=== PATIENT | female | born 1970 | race Caucasian/White ===

== ENCOUNTER → 2017-02-21 | Outpatient (CLI) | payer BC ==
--- NOTE | 2017-02-21 10:19 | CT ---
EXAMINATION TYPE: CT chest wo con DATE OF EXAM: 02/21/2017 COMPARISON: Chest x-ray January 19, 2017. HISTORY: Abnormal breathing test results per patient. History of asthma and lupus. Interstitial lung disease. CT DLP: 373.7 mGycm. Automated Exposure Control for Dose Reduction was Utilized. TECHNIQUE: CT scan of the thorax is performed without IV contrast. High resolution protocol with 10 mm sequences obtained in supine and prone technique. FINDINGS: LUNGS: Thickened septa and reticulation is present bilaterally. Thin-walled cystic change is seen piotr aterally most prominent involving upper lobes. Findings may be on basis of chronic emphysematous chow ge. Some additional linear scarring in both lung bases near diaphragm is identified. There is 15 x 7 mm scarlike opacity laterally right upper lung on axial image 5 series 8. This likely correlates with image 7 series 4. Mild peribronchial wall thickening is present. No large pleural effusion or pneumo thorax is seen. Lower lungs relatively spared. No suspicious consolidation or groundglass opacity oth erwise identified. Some upper lung scattered tiny nodular opacities noted. MEDIASTINUM: Lack of IV contrast is noted to limit evaluation for mediastinal and especially hilar ad enopathy. There are no definitive greater than 1 cm hilar or mediastinal lymph nodes. No cardiomega ly or pericardial effusion is seen. Coronary artery calcification is present. OTHER: Osseous structures are somewhat demineralized. IMPRESSION: Parenchymal findings favor moderate emphysematous change. Scarlike nodule right upper lob e noted in which underlying mass or neoplasm cannot be excluded. Advise PET/CT correlation.
== END | disposition home or self-care (01) ==
LOC: RADCTMAIN 08:02
PROVIDERS: ATTEND Internal Medicine
DX: J43.8 Other emphysema (principal); R91.1 Solitary pulmonary nodule
CPT/HCPCS: 71250

== ENCOUNTER 2022-12-26 11:36 | Emergency (ER) | payer BC ==
[2022-12-26] MEDS ORDERED: KETOROLAC 15 MG/ML 1 ML VIAL IVP STA ×2 (13:17→15:04)
[2022-12-26] MEDS ORDERED: HYDROmorphone 1 MG/ML 1 ML SYRINGE IVP STA ×2 (13:17→15:04)
--- NOTE | 2022-12-26 13:20 | ED ---
General Adult HPI - General Chief complaint: Back Pain/Injury Stated complaint: back pain Time Seen by Provider: 12/26/22 12:49 Source: patient, RN notes reviewed Mode of arrival: wheelchair Limitations: no limitations - History of Present Illness Initial comments: Patient is a pleasant 52-year-old female presenting to the emergency Department with back pain. Patient has been to her doctor twice, urgent care and [facility]. Patient did have computed tomography scan done at [facility]. Patient has received pain medications including hydrocodone and is currently on baclofen and steroids. Patient is having increased weakness, somewhat more left leg. Difficult to lift legs off the bed. Patient has been using a walker recently which is new for her however difficulty even using that today. No incontinence or retention of bowel or bladder. Patient does have numbness sensation of her sacral region and bilateral inner posterior thighs. Patient does have history of lupus - Related Data Allergies Allergy/AdvReac Type Severity Reaction Status Date / Time Penicillins Allergy Anaphylaxis Verified 12/26/22 12:10 Review of Systems ROS Statement: Those systems with pertinent positive or pertinent negative responses have been documented in the HPI. ROS Other: All systems not noted in ROS Statement are negative. Constitutional: Denies: fever Eyes: Denies: eye pain ENT: Denies: ear pain Respiratory: Denies: cough Cardiovascular: Denies: chest pain Endocrine: Denies: fatigue Gastrointestinal: Denies: abdominal pain Genitourinary: Denies: dysuria Musculoskeletal: Reports: as per HPI, back pain Skin: Denies: lesions Neurological: Reports: as per HPI, weakness Past Medical History Past Medical History: Asthma Additional Past Medical History / Comment(s): lupus History of Any Multi-Drug Resistant Organisms: None Reported Past Surgical History: Section Smoking Status: Never smoker Past Alcohol Use History: None Reported Past Drug Use History: None Reported General Exam Limitations: no limitations General appearance: alert, in no apparent distress Head exam: Present: normocephalic Eye exam: Present: normal appearance Neck exam: Present: normal inspection Respiratory exam: Present: normal lung sounds bilaterally Cardiovascular Exam: Present: regular rate, normal rhythm Expanded Peripheral pulses: 2+: Dorsalis Pedis (R), Dorsalis Pedis (L) GI/Abdominal exam: Present: soft. Absent: tenderness Extremities exam: Present: normal inspection Back exam: Present: normal inspection. Absent: tenderness Neurological exam: Present: alert, other (Patient states decreased sensation sacral region and upper inner posterior thighs. Good strength with flexion and extension at the toes. Difficulty lifting legs off the bed secondary to pain) Psychiatric exam: Present: normal affect, normal mood Skin exam: Present: normal color Course Vital Signs 12/26/22 12/26/22 12/26/22 12:07 13:26 14:24 Temperature 97.8 F Pulse Rate 94 78 66 Respiratory 18 14 Rate Blood Pressure 163/79 198/90 182/79 O2 Sat by Pulse 98 97 Oximetry Medical Decision Making - Medical Decision Making Was pt. sent in by a medical professional or institution (, PA, CORN LAB TECHNICIAN, urgent care, hospital, or [facility]...) When possible be specific @ -No Did you speak to anyone other than the patient for history (EMS, parent, family, police, friend...)? What history was obtained from this source @ -No Did you review nursing and triage notes (agree or disagree)? Why? @ -I reviewed and agree with nursing and triage notes Were old charts reviewed (outside hosp., previous admission, EMS record, old EKG, old radiological studies, urgent care reports/EKG's, [facility] records)? Report findings @ -I did review ER report and computed tomography scan from [facility] on 12/21/22 Differential Diagnosis (chest pain, altered mental status, abdominal pain women, abdominal pain men, vaginal bleeding, weakness, fever, dyspnea, syncope, headache, dizziness, GI bleed, back pain, seizure, CVA, palpatations, mental health)? @ -Differential Back Pain: Strain, zoster, cauda equina syndrome, epidural abscess, vertebral osteomyelitis, discitis, fracture, subluxation, disc herniation, DJD, spinal stenosis, dissection, AAA, pancreatitis, peptic ulcer disease, pyelonephritis, kidney stone, this is not meant to be an all-inclusive list. EKG interpreted by me (3pts min.). @ -As above X-rays interpreted by me (1pt min.). @ -None done CT interpreted by me (1pt min.). @ -None done U/S interpreted by me (1pt. min.). @ -None done What testing was considered but not performed or refused? (CT, X-rays, U/S, labs)? Why? @ -None What meds were considered but not given or refused? Why? @ -None Did you discuss the management of the patient with other professionals (professionals i.e. , PA, CORN LAB TECHNICIAN, lab, RT, psych nurse, social insurance adviser, board lining machine operator, teacher, youth liaison officer, case finisher)? Give summary @ -I did discuss the case in detail with practitioner Payam with Dr. Tidwell 7 who recommends discharge and they will follow up with patient this week. This did include patient's symptoms, exam findings, and CT results Was smoking cessation discussed for >3mins.? @ -No Was critical care preformed (if so, how long)? @ -No Were there social determinants of health that impacted care today? How? (Homeles sness, low income, unemployed, alcoholism, drug addiction, transportation, low edu. Level, literacy, decrease access to med. care, prison, rehab)? @ -No Was there de-escalation of care discussed even if they declined (Discuss DNR or withdrawal of care, Hospice)? DNR status @ -No What co-morbidities impacted this encounter? (DM, HTN, Smoking, COPD, CAD, Cancer, CVA, ARF, Chemo, Hep., AIDS, mental health diagnosis, sleep apnea, morbid obesity)? @ -None Was patient admitted / discharged? Hospital course, mention meds given and route, prescriptions, significant lab abnormalities, going to OR and other pertinent info. @ -Patient reevaluated and feeling much better following pain medication. Strength is intact. Patient has follow-up set up for this week and is currently on steroids. Patient will be given additional dose of steroid here Undiagnosed new problem with uncertain prognosis? @ -No Drug Therapy requiring intensive monitoring for toxicity (Heparin, Nitro, Insulin, Cardizem)? @ -No Were any procedures done? @ -No Diagnosis/symptom? @ -Low back pain Acute, or Chronic, or Acute on Chronic? @ -Acute Uncomplicated (without systemic symptoms) or Complicated (systemic symptoms)? @ -default Side effects of treatment? @ -No Exacerbation, Progression, or Severe Exacerbation? @ -No Poses a threat to life or bodily function? How? (Chest pain, [place], [place], pneumonia, PE, COPD, DKA, ARF, appy, cholecystitis, CVA, Diverticulitis, Homicidal, Suicidal, threat to staff... and all critical care pts) @ -No Disposition Clinical Impression: Low back pain Disposition: HOME SELF-CARE Condition: Stable Instructions (If sedation given, give patient instructions): Acute Low Back Pain (ED) Additional Instructions: Please call tomorrow for follow-up with practitioner Payam or Dr. Keith this week. Return for weakness, loss of control of bowel or bladder, loss of sensation, fever, worsening symptoms or any other concerns. Is patient prescribed a controlled substance at d/c from ED?: No Referrals: Joselo Scott DO [Primary Care Provider] - 1-2 days Shanelle Hare NPC [Nurse Practitioner] - 1-2 days Sanjay Keith DO [Doctor of Osteopathic Medicine] - 1-2 days Time of Disposition: 15:10
[2022-12-26] MEDS ORDERED: DEXAMETHASONE SOD PHOSPHATE 4 MG/ML 1 ML VIAL IVP STA (15:07)
[2022-12-26] MEDS ORDERED: ACET/COD 300 MG/30 MG STARTER PACK 6 TAB BTL PO STA (15:08)
[2022-12-26 17:05] VITALS: BP 147/92; PULSE 69; RESP 16; TEMP 98
== END 2022-12-26 15:55 | disposition home or self-care (01) ==
LOC: EC 11:36
DX: M54.50 Low back pain, unspecified (principal); J45.909 Unspecified asthma, uncomplicated; Z88.0 Allergy status to penicillin
CPT/HCPCS: 99283; 96374 ×2; 96375 ×3; 96376 ×3; 99284; J1100; J1170; J1885

== ENCOUNTER 2022-12-28 10:34 | Observation (INO) | payer BC ==
--- NOTE | 2022-12-28 10:53 | ED ---
General Adult HPI - General Chief complaint: Back Pain/Injury Stated complaint: Back pain Time Seen by Provider: 12/28/22 10:45 Source: patient, RN notes reviewed Mode of arrival: wheelchair Limitations: no limitations - History of Present Illness Initial comments: This is a 52-year-old female presents to the emergency department with a chief complaint of back pain. Patient reports that she has been seen multiple times by multiple providers for the same. Patient was seen by home mortgage disclosure act specialist prior to arrival who recommended she be admitted to the hospital for pain management and MRI. She is reporting worsening pain to her left leg. Patient reports that she has been taking her pain medications as prescribed with mild to no symptomatically relief. She denies any fevers, loss of bowel or bladder function. She denies no new trauma or injury. Patient reports that after she is discharged from her recent ER and urgent care visits that her pain is managed for approximately 12 hours however it will come back worse when the pain medication wears off. - Related Data Allergies Allergy/AdvReac Type Severity Reaction Status Date / Time Penicillins Allergy Anaphylaxis Verified 12/28/22 10:44 Review of Systems ROS Statement: Those systems with pertinent positive or pertinent negative responses have been documented in the HPI. ROS Other: All systems not noted in ROS Statement are negative. Past Medical History Past Medical History: Asthma Additional Past Medical History / Comment(s): lupus, Back pain History of Any Multi-Drug Resistant Organisms: None Reported Past Surgical History: Section Smoking Status: Never smoker Past Alcohol Use History: Occasional Past Drug Use History: None Reported General Exam - General Exam Comments Initial Comments: General: Alert, in no acute distress Head: atraumatic normocephalic. Eyes PERRL, EOMI intact, mucous membranes moist Respiratory: Lungs clear to auscultation bilaterally Cardiovascular: Heart rate regular rate and rhythm Abdominal: Soft without guarding or rebound Extremities: Normal inspection with full range of motion and normal capillary refill Neuroogic: alert and oriented 3, CN II-XII intact, able to ambulate with steady gait Skin: warm dry and intact with normal color Limitations: no limitations Course Vital Signs 12/28/22 10:42 Temperature 98 F Pulse Rate 66 Respiratory 20 Rate Blood Pressure 182/83 O2 Sat by Pulse 99 Oximetry - Reevaluation(s) Reevaluation #1: 12/28/22 11:40 Case discussed with the branch who agrees and accepts the patient for admission for pain management and an MRI of the lumbar spine Medical Decision Making - Medical Decision Making Was pt. sent in by a medical professional or institution (IDALMIS Acosta, COSTUME DESIGN TEACHER, urgent care, hospital, or jail...) When possible be specific @ -[No] Did you speak to anyone other than the patient for history (EMS, parent, family, police, friend...)? What history was obtained from this source @ -[No] Did you review nursing and triage notes (agree or disagree)? Why? @ -[I reviewed and agree with nursing and triage notes] Were old charts reviewed (outside hosp., previous admission, EMS record, old EKG, old radiological studies, urgent care reports/EKG's, jail records)? Report findings @ -[No old charts were reviewed] Differential Diagnosis (chest pain, altered mental status, abdominal pain women, abdominal pain men, vaginal bleeding, weakness, fever, dyspnea, syncope, headache, dizziness, GI bleed, back pain, seizure, CVA, palpatations, mental health, musculoskeletal)? @ -[not applicable] EKG interpreted by me (3pts min.). @ -[As above] X-rays interpreted by me (1pt min.). @ -[None done] CT interpreted by me (1pt min.). @ -[None done] U/S interpreted by me (1pt. min.). @ -[None done] What testing was considered but not performed or refused? (CT, X-rays, U/S, labs)? Why? @ -[None] What meds were considered but not given or refused? Why? @ -[None] Did you discuss the management of the patient with other professionals (professionals i.e. IDALMIS Acosta, COSTUME DESIGN TEACHER, lab, RT, psych nurse, social worker school, brain surgeon, teacher, armed security officer, lead case manager)? Give summary @ -[Case discussed with ASHA Sparks who agrees with the plan of care and accepts the patient for admission and recommends pain management and an MRI of the lumbar spine Was smoking cessation discussed for >3mins.? @ -[No] Was critical care preformed (if so, how long)? @ -[No] Were there social determinants of health that impacted care today? How? (Homelessness, low income, unemployed, alcoholism, drug addiction, transportation, low edu. Level, literacy, decrease access to med. care, alf, rehab)? @ -[No] Was there de-escalation of care discussed even if they declined (Discuss DNR or withdrawal of care, Hospice)? DNR status @ -[No] What co-morbidities impacted this encounter? (DM, HTN, Smoking, COPD, CAD, Cancer, CVA, ARF, Chemo, Hep., AIDS, mental health diagnosis, sleep apnea, morbid obesity)? @ -[None] Was patient admitted / discharged? Hospital course, mention meds given and route, prescriptions, significant lab abnormalities, going to OR and other pertinent info. @ -Admission. This is a 52-year-old female who presents the emergency department with back.. Patient had a thorough history and physical exam performed. Heart rate regular rate and rhythm lungs clear to auscultation bilaterally abdomen is soft and nontender. Patient able to move all extremities freely, she is able to ambulate with some assistance. Patient was given Toradol and Dilaudid while in the emergency department. Case discussed with ASHA Gill who agrees and accepts the patient for admission. Case discussed with Dr. Panchal who agrees with plan of care. Undiagnosed new problem with uncertain prognosis? @ -[No] Drug Therapy requiring intensive monitoring for toxicity (Heparin, Nitro, Insulin, Cardizem)? @ -[No] Were any procedures done? @ -[No] Diagnosis/symptom? @ -Low back pain - Pain management Acute, or Chronic, or Acute on Chronic? @ -Acute Uncomplicated (without systemic symptoms) or Complicated (systemic symptoms)? @ -uncomplicated Side effects of treatment? @ -[No] Exacerbation, Progression, or Severe Exacerbation? @ -[No] Poses a threat to life or bodily function? How? (Chest pain, [place], [place], pneumonia, PE, COPD, DKA, ARF, appy, cholecystitis, CVA, Diverticulitis, Homicidal, Suicidal, threat to staff... and all critical care pts) @ -moderate likelihood Disposition Clinical Impression: Low back pain, Pain management Disposition: ADMITTED [facility] Condition: Fair Referrals: Joselo Scott DO [Primary Care Provider] - 1-2 days Time of Disposition: 11:38
[2022-12-28] MEDS ORDERED: KETOROLAC 15 MG/ML 1 ML VIAL IM STA (10:59)
[2022-12-28] MEDS ORDERED: NALOXONE 0.4 MG/ML 1 ML VIAL IV PRN (11:06)
[2022-12-28] MEDS: HYDROmorphone 0.5 MG/0.5 ML SYRINGE IVP PRN ×2 (11:21→14:29)
[2022-12-28] MEDS: DEXAMETHASONE SOD PHOSPHATE 4 MG/ML 1 ML VIAL IVP SCH ×2 (12:30→16:56)
--- NOTE | 2022-12-28 14:10 | MR ---
EXAMINATION TYPE: MR lumbar spine wo con DATE OF EXAM: 12/28/2022 COMPARISON: Radiograph same day HISTORY: 52-year-old female with back pain TECHNIQUE: Multiplanar, multisequence images of the lumbar spine were acquired without IV contrast. FINDINGS: Vertebral body heights are preserved and alignment is maintained. Diffusely heterogeneous marrow signal change without loretta bone marrow replacement seen. Conus medullaris is normal. There is some soft tissue edema noted along the dependent posterior midline. Moderate degenerative disc disease L5-S1 with narrowed, desiccated, and diffusely bulging disc. Some associated Modic type I endplate change at this level. There is slight inferior migration of disc mat erial at this level. However, no significant spinal canal stenosis. Changes result in moderate right neural foraminal stenosis with possible impingement of the exiting r ight L5 nerve root, sagittal image 14. Mild left foraminal stenosis. However, there is a left lateral disc osteophyte complex which abuts the extraforaminal left L5 nerve root. No significant spinal canal stenosis elsewhere in the lumbar spine. No significant neural foraminal stenosis seen. IMPRESSION: 1. Very heterogeneous marrow signal suggesting prominent red marrow hyperplasia. This can be seen in the setting of anemia, obesity, smoking, chronic disease. Clinically correlate. 2. Moderate degenerative disc disease L5-S1 with some inferior migration of the posteriorly bulging d isc material and a left lateral disc osteophyte complex. Some associated edematous Modic type I endpl ate change here. 3. While there is no significant spinal canal stenosis, there may be impingement of the exiting right L5 nerve root at this level. Additionally, the left lateral disc osteophyte complex abuts the extraf oraminal left L5 nerve root at this level.
--- NOTE | 2022-12-28 16:22 | P.HPOR ---
History of Present Illness H&P Date: 12/28/22 Chief Complaint: Low back pain; bilateral leg pain Patient is a 52-year-old female who presents to the emergency department earlier today with a chief complaint of low back pain. Patient has had multiple visits to the ER the past couple weeks due to the same issue. Patient was seen at bedside this morning lying semirecumbent position with knees flexed to chest. Patient says she began having low back pain on 12/12/2022. Patient says over the past couple weeks the pain has not gone away much. Patient says normally she does wear shoes with inserts, however, patient did wear [employer] Dude shoes without inserts and noticed increasing back pain after a day of walking. Morgan george denies any trauma/falls. Patient denies any previous orthopedic spine surgery. Patient says she has never had physical therapy for her back. Patient denies ever seeing a chiropractor for her back. Patient denies any previous injections into her spine. Patient says she has tried [id number] pain medication with minimal to no relief. Patient states that also pain is in the low back with radiation down the back of both her legs. Patient describes the pain as burning in nature down the back of her legs. Patient denies any loss of bowel/bladder control. MRI lumbar spine was performed today in the hospital patient denies chest pain, fever, shortness breath, nausea, vomiting, change in vision, loss of bowel/bladder control. Past Medical History Past Medical History: Asthma Additional Past Medical History / Comment(s): lupus, Back pain History of Any Multi-Drug Resistant Organisms: None Reported Past Surgical History: Section Past Anesthesia/Blood Transfusion Reactions: No Reported Reaction Past Psychological History: No Psychological Hx Reported Smoking Status: Never smoker Past Alcohol Use History: Occasional Past Drug Use History: None Reported Medications and Allergies Home Medications Medication Instructions Recorded Confirmed Type Acetaminophen-Codeine 300-30mg 1 tab PO Q6H PRN 12/28/22 12/28/22 History [Tylenol w/codeine #3] Alendronate Sodium [Fosamax] 70 mg PO ABBASI 12/28/22 12/28/22 History Ibuprofen [Motrin] 800 mg PO Q8H PRN 12/28/22 12/28/22 History atenoloL 25 mg PO AC-BID 12/28/22 12/28/22 History methocarbamoL [Robaxin-750] 750 mg PO QID PRN 12/28/22 12/28/22 History predniSONE 10 mg PO AC-SUPPER 12/28/22 12/28/22 History Allergies Allergy/AdvReac Type Severity Reaction Status Date / Time Penicillins Allergy Anaphylaxis Verified 12/28/22 12:22 Physical Examination Inspection: Negative for any open fractures, significant ecchymosis/erythema/ulcers. Palpation: Moderatesignificant tenderness to patient over the bilateral SI joints and over the lower lumbar spine at midline. Nontender to palpation throughout rest exam. Sensation: Sensation is equal, symmetric, bilaterally intact throughout the upper and lower extremities Range of motion: Patient does have limited range of motion and left hips and flexion/extension due to referred pain from the low back. Patient does have full range of motion bilateral upper extremities and in knees and ankles and fle xion/extension and dorsiflexion/plantarflexion. Motor: 5/5 in all major motor groups in bilateral upper extremity is in exam. 4+/5 in EHL//FHL and bilateral ankles in dorsi/plantar flexion. 4/5 in resisted knee flexion/extension bilaterally. 4-/5 in resisted hip flexion/extension bilaterally Neurovascular status: Radial pulses intact, 2+. Cap refill under 3 seconds in digits upper extremity. DP pulses intact bilaterally. Special tests: Negative Homans bilaterally. Negative clonus bilaterally. Negative Homans bilaterally. Results - Diagnostic results Lumbar MRI with/without contrast: report reviewed, image reviewed (MRI lumbar spine does reveal degenerative disc disease at L5-S1 as well as neural foraminal stenosis at L5-S1) Assessment and Plan Assessment: 1. Low back pain; bilateral lower extremity radiculopathy Plan: 1. Low back pain; bilateral lower extremity radiculopathy - MRI of the lumbar spine does reveal degenerative disc disease disc bulging at L5-S1 as well as neural foraminal stenosis at L5-S1. At this time we are not recommending any emergent/urgent orthopedic surgical intervention. Pain management has been counseled sit for L5-S1 neuroforaminal stenosis with potential epidural steroid injection. We have ordered IV steroids to help with his symptoms as well as gabapentin and Flexeril. Patient may weight-bear as tolerated with walker/cane as necessary. PT/OT recommendations. We'll continue to follow the patient du ring her stay in hospital. 2. Appreciate medical management 3. Pain management - gabapentin; Flexeril 4. GI prophylaxis - senna 5. DVT prophylaxis recs 6. PT/OT - weightbearing as tolerated with walker/cane as necessary 7. Encourage incentive spirometer Time with Patient: Less than 30
[2022-12-28] MEDS: atenoloL 25 MG TAB PO SCH (16:54)
[2022-12-28] MEDS: CYCLOBENZAPRINE 10 MG TAB PO PRN (16:55)
[2022-12-28] MEDS: GABAPENTIN 300 MG CAP PO SCH (21:24)
[2022-12-29] MEDS: DEXAMETHASONE SOD PHOSPHATE 4 MG/ML 1 ML VIAL IVP SCH ×4 (00:41→23:39)
[2022-12-29] MEDS: atenoloL 25 MG TAB PO SCH ×2 (05:43→17:00)
[2022-12-29] MEDS: HYDROmorphone 0.5 MG/0.5 ML SYRINGE IVP PRN ×3 (05:48→20:06)
[2022-12-29] MEDS: GABAPENTIN 300 MG CAP PO SCH ×3 (09:02→20:06)
[2022-12-29] MEDS: SENNOSIDES 8.6 MG TAB PO SCH (09:03)
[2022-12-29] MEDS ORDERED: ONDANSETRON 4 MG/2 ML VIAL IVP PRN (09:54)
[2022-12-29] MEDS ORDERED: ACETAMINOPHEN TAB 325 MG TAB PO PRN (09:54)
--- NOTE | 2022-12-29 10:30 | P.PN ---
Subjective Progress Note Date: 12/29/22 Principal diagnosis: Low back pain; bilateral lower extremity radiculopathy Patient was seen at bedside this morning lying recumbent position in bed. Patient says she did receive a dose of gabapentin before bedtime last night and did sleep fairly decent. Patient says she did get up to go to the bathroom and used a cane and had some increasing pain down the bilateral lower extremities when she was walking. Patient says she is hopeful to get up today and sit in chair next to bed. She says she is looking forward to seeing/getting a recommendation from interventional radiologist. Patient denies any new changes. Patient denies chest pain, fever, shortness breath, nausea, vomiting, change in vision, loss of bowel/bladder control. Objective - Vital Signs Vital signs: Vital Signs Temp 97 F L 12/29/22 07:00 Pulse 67 12/29/22 07:00 Resp 18 12/29/22 07:00 BP 154/80 12/29/22 08:42 Pulse Ox 96 12/29/22 07:00 FiO2 Intake & Output 12/28/22 12/29/22 12/29/22 18:59 06:59 18:59 Intake Total 118 Balance 118 Weight 63.503 kg Intake: Oral 118 Other: # Voids 1 - Exam Inspection: Negative for any open fractures, significant ecchymosis/erythema/ulcers. Palpation: Moderatesignificant tenderness to patient over the bilateral SI joints and over the lower lumbar spine at midline. Nontender to palpation t hroughout rest exam. Sensation: Sensation is equal, symmetric, bilaterally intact throughout the upper and lower extremities Range of motion: Patient does have limited range of motion and left hips and flexion/extension due to referred pain from the low back. Patient does have full range of motion bilateral upper extremities and in knees and ankles and flexion/extension and dorsiflexion/plantarflexion. Motor: 5/5 in all major motor groups in bilateral upper extremity is in exam. 4+/5 in EHL//FHL and bilateral ankles in dorsi/plantar flexion. 4/5 in resisted knee flexion/extension bilaterally. 4-/5 in resisted hip flexion/extension bilaterally Neurovascular status: Radial pulses intact, 2+. Cap refill under 3 seconds in digits upper extremity. DP pulses intact bilaterally. Special tests: Negative Homans bilaterally. Negative clonus bilaterally. Negative Homans bilaterally. Assessment and Plan Assessment: 1. Low back pain; bilateral lower extremity radiculopathy Plan: 1. Low back pain; bilateral lower extremity radiculopathy - MRI of the lumbar spine does reveal degenerative disc disease disc bulging at L5-S1 as well as neural foraminal stenosis at L5-S1. At this time we are not recommending any emergent/urgent orthopedic surgical intervention. Pain management has been consulted for L5-S1 neuroforaminal stenosis with potential for epidural steroid injection. We have ordered IV steroids to help with his symptoms as well as gabapentin and Flexeril. Patient may weight-bear as tolerated with walker/cane as necessary. PT/OT recommendations. We'll continue to follow the patient during her stay in hospital. 2. Appreciate medical management and interventional radiology management 3. Pain management - gabapentin; Flexeril 4. GI prophylaxis - senna 5. DVT prophylaxis recs 6. PT/OT - weightbearing as tolerated with walker/cane as necessary 7. Encourage incentive spirometer use Time with Patient: Less than 30
[2022-12-29] MEDS: LOSARTAN 25 MG TAB PO SCH (13:19)
[2022-12-29] MEDS: FAMOTIDINE 20 MG TAB PO SCH ×2 (13:20→20:06)
[2022-12-29] MEDS: CYCLOBENZAPRINE 10 MG TAB PO PRN ×2 (13:20→23:39)
--- NOTE | 2022-12-29 14:24 | P.CONS ---
History of Present Illness - Reason for Consult Consult date: 12/29/22 - History of Present Illness This is a 52 year old female with history of asthma, hypertension and lupus maintained on daily steroid. Patient presents to the hospital with complaints of lower back pain with radiation into bilateral legs down to the knees. Patient reports last tuesday her day off work she was doing her usual activity. Had gotten a delivery of dog food about 25 lbs and brought inside. Went to work on Tuesday and states by the middle of the day the pain was not tolerable. Patient has been at home since basically going from the bathroom back to lay down. Patient was seen at [facility] Tuesday and was discahrged home with norco and muscle relaxers. Patient had been using without much relief. Patient went to see the PA at [facility] and had 2 xrays done states that the pain was too unbearable and was sent to the ER for further evaluation. Patient does report feeling numbness more on the right leg including the perineum. Denies any loss of bladder or bowel. Patient had a lumbar spine MRi done showing very heterogenous marrow signal suggesting prominent marrow hyperplasia. Moderate degenerative disc disease L5-S1 with some inferior migration of the posteriorly bulging disc material and a left lateral disc osteophyte complex. Some associated edematous modic type 1 endplate change here. White there is no significant spinal canal stenosis, there may be impingement of the exiting right L5 nerve root at this level. Additionally, the left lateral disc osteophyte complex abuts the extraforaminal left L5 nerve root at this level. Patient was admitted to the hospital under orthopedics services and has been started on IV decadron and pain management. Patient does report pain is atleast tolerable and the edge is taken off. Patient is having increased blood pressure up in the 200s systolic likely from pain and patient has been resumed on home atenolol and has been recommended to start losartan. Patient will be evaluated by pain management services for possible epidural injection. REVIEW OF SYSTEMS: CONSTITUTIONAL: No fever, no malaise, no fatigue. HEENT: No recent visual problems or hearing problems. Denied any sore throat. CARDIOVASCULAR: No chest pain, orthopnea, PND, no palpitations, no syncope. PULMONARY: No shortness of breath, no cough, no hemoptysis. GASTROINTESTINAL: No diarrhea, no nausea, no vomiting, no abdominal pain. NEUROLOGICAL: No headaches, no weakness, no numbness. HEMATOLOGICAL: Denies any bleeding or petechiae. GENITOURINARY: Denies any burning micturition, frequency, or urgency. MUSCULOSKELETAL/RHEUMATOLOGICAL: Denies any joint pain, swelling, or any muscle pain. ENDOCRINE: Denies any polyuria or polydipsia. The rest of the 14-point review of systems is negative. PHYSICAL EXAMINATION: GENERAL: The patient is alert and oriented x3, not in any acute distress. Well developed, well nourished. HEENT: Pupils are round and equally reacting to light. EOMI. No scleral icterus. No conjunctival pallor. Normocephalic, atraumatic. No pharyngeal erythema. No thyromegaly. CARDIOVASCULAR: S1 and S2 present. No murmurs, rubs, or gallops. PULMONARY: Chest is clear to auscultation, no wheezing or crackles. ABDOMEN: Soft, nontender, nondistended, normoactive bowel sounds. No palpable organomegaly. MUSCULOSKELETAL: No joint swelling or deformity. EXTREMITIES: No cyanosis, clubbing, or pedal edema. NEUROLOGICAL: Gross neurological examination did not reveal any focal deficits. Patient has postive pedal and post tib pulses. Positive has increased pain with hip flexion and extension. SKIN: No rashes. Assessment Low back pain with bilateral lumbar radiculopathy with L5 nerve root impingement on imaging Hypertension exacerbated by pain level History of asthma maintained on inhalers at home, has followed with Dr. Malave in the past History of lupus maintained on oral prednisone GI prophylaxis DVT prophylaxis as per primary Full Code Plan Pain management consultation in place Patient has been started on IV decadrone, home prednisone remains on hold Continue with pain management and bowel regimen Continue home blood pressure medication and has been started on losartan. Continue to monitor blood pressure closely. The impression and plan of care has been dictated by Fern Becerril Nurse Practitioner as directed. Dr. Sena MD I have performed a history and physical examination and medical decision making of this patient, discussed the same with the dictator, and agree with the dictators assessment and plan as written, documented as a scribe. Based on total visit time, I have performed more than 50% of this visit. Past Medical History Past Medical History: Asthma Additional Past Medical History / Comment(s): lupus, Back pain History of Any Multi-Drug Resistant Organisms: None Reported Past Surgical History: Section Past Anesthesia/Blood Transfusion Reactions: No Reported Reaction Past Psychological History: No Psychological Hx Reported Smoking Status: Never smoker Past Alcohol Use History: Occasional Past Drug Use History: None Reported Medications and Allergies Home Medications Medication Instructions Recorded Confirmed Type Acetaminophen-Codeine 300-30mg 1 tab PO Q6H PRN 12/28/22 12/28/22 History [Tylenol w/codeine #3] Alendronate Sodium [Fosamax] 70 mg PO ABBASI 12/28/22 12/28/22 History Ibuprofen [Motrin] 800 mg PO Q8H PRN 12/28/22 12/28/22 History atenoloL 25 mg PO AC-BID 12/28/22 12/28/22 History methocarbamoL [Robaxin-750] 750 mg PO QID PRN 12/28/22 12/28/22 History predniSONE 10 mg PO AC-SUPPER 12/28/22 12/28/22 History Allergies Allergy/AdvReac Type Severity Reaction Status Date / Time Penicillins Allergy Anaphylaxis Verified 12/28/22 12:22 Physical Exam Vitals: Vital Signs Temp Pulse Pulse Resp BP BP Pulse Ox 12/29/22 08:42 154/80 12/29/22 07:00 97 F L 67 18 200/97 96 12/29/22 02:00 97.7 F 64 15 172/75 98 12/28/22 20:00 98.3 F 68 17 151/76 96 12/28/22 14:06 98.6 F 78 18 176/85 97 12/28/22 13:34 98.2 F 12/28/22 12:40 98.2 F 72 16 177/89 94 L 12/28/22 10:42 98 F 66 20 182/83 99 Intake and Output 12/28/22 12/29/22 12/29/22 22:59 06:59 14:59 Intake Total 118 Balance 118 Intake: Oral 118 Other: # Voids 2 1 Assessment and Plan Time with Patient: Less than 30
--- NOTE | 2022-12-29 15:33 | P.PAINPG ---
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 Pt states pain level is provoked at 10 /10 in intensity, constant, localized in the lower lumbar spine where it meets the tailbone, achy in character w shooting pain towards the BLEs towards the feet. Pain is provoked by weight bearing activity. Pain is alleviated by medications (Tyl, Neurontin, Dilaudid 05mg IVP Q3h prn), repositioning, reclining and rest. Pt has not tried PT nor chiropractic treatments yet but she has a script to go. PMH: Asthma, SLE PSH: Section SH: Never smoker, Occasional ETOH use, No illicit drug use FH: Non contributory All: PCN Meds: See list REVIEW OF ORGAN SYSTEMS: CONSTITUTIONAL: No fevers or chills. No recent weight loss. NEUROLOGICAL: + numbness and tingling along the distal extremities. No seizure disorders or headaches. MUSCULOSKELETAL: + pain PSYCHIATRIC: Denies current depression or suicidal thoughts. Physical Examinations : Constitutional : Cooperative , not in acute distress . Neurologic : Cranial nerve II to XII intact. No focal neurological deficits. Psychiatric : alert & oriented x 3. Matching mood & appropriate affect. Judgment & insight intact. Musculoskeletal : Cervical Spine Motor strength in the deltoid and biceps: Normal right side. Normal Left side Motor strength biceps and the wrist extensors: Normal right side . Normal left side Motor strength in the triceps muscle: Normal right side. Normal left side Deep tendon reflexes: Normal at the biceps. Normal at Brachioradialis. Normal at triceps Vertebral body tenderness to deep palpation over Cervical facet loading test: positive bilaterally Spurling test: positive bilaterally Neck distraction test: positive bilaterally Eva sign: positive bilaterally Lumbar spine Motor strength lower extremities ,thigh and legs 5/5 Right side , 5/5 Left side Deep tendon reflexes : Normal Knee Jerk. Normal Ankle Jerk Vertebral body tenderness over L5 + Epperson Test positive Lumbar facet Loading Test: positive Right / positive Left Range of motion of the lumbar spine Flexion 30 degrees, extension 10 degrees Straight Leg Raise test: Left/ Right positive at degree Gama test: positive right / positive left. Severe tenderness over the Sacroiliac joint on the Right / Left sides Gaenslen test: positive bilaterally Seated flexion test: positive bilaterally. Sacral spine : Severe tenderness over the Sacroiliac joint: right side / left side Range of motion: Flexion of the lumbar spine <60 degrees Range of motion: Extension of the lumbar spine <20 degrees Gaenslen's Test positive Jesus Alberto's Test positive Gama test: positive right side / left side Thigh Thrust Test Sacral Thrust Test Imaging: MRI non contrast of the lubmar spine reviewed Assessment/ Plan : Lumbar spondylosis, Lumbar DDD Recommendation of HARSHA L5-S1. May need a series of injections for optimal pain relief. Risks, benefits of procedure discussed and patient verbalized understanding. Admits to aspirin or anti- coagulant use or medical history of diabetes. Protocol for discontinuation/ continuation of medications yahir procedure discussed. Minimal anesthesia provided, if clinically indicated, consisting of Versed and Fentanyl. NPO after midnight. Nursing notified. All questions answered. I have spent greater than 30 minutes on patient care today. Dr Benson was available by phone for the evaluation of this patient. The time was used to review the medical records including relevant urine studies and Prescription history (MAPs), review of the available imaging, evaluation and examination of the patient, coordination of care with the medical staff and if applicable referring physicians, as well as creation of the medical record PQRS Narrative: Blood Pressure [Left Arm] 154/80 Blood Pressure 177/89 Pain Intensity [Back] 3 Pain Intensity 0 Pain Scale Used Numeric (1 - 10) Scale Used Numeric (1 - 10) Home Medications: Ambulatory Orders Acetaminophen-Codeine 300-30mg [Tylenol w/codeine #3] 1 tab PO Q6H PRN 12/28/22 Alendronate Sodium [Fosamax] 70 mg PO ABBASI 12/28/22 Ibuprofen [Motrin] 800 mg PO Q8H PRN 12/28/22 atenoloL 25 mg PO AC-BID 12/28/22 methocarbamoL [Robaxin-750] 750 mg PO QID PRN 12/28/22 predniSONE 10 mg PO AC-SUPPER 12/28/22 Controlled Substance Measures - Controlled Substance Measures Is patient prescribed a controlled substance at discharge?: No
[2022-12-30] MEDS: HYDROmorphone 0.5 MG/0.5 ML SYRINGE IVP PRN ×5 (01:55→23:14)
[2022-12-30] MEDS: atenoloL 25 MG TAB PO SCH ×2 (06:23→17:32)
[2022-12-30] MEDS: DEXAMETHASONE SOD PHOSPHATE 4 MG/ML 1 ML VIAL IVP SCH ×4 (06:23→23:14)
[2022-12-30] MEDS: LOSARTAN 25 MG TAB PO SCH (09:23)
[2022-12-30] MEDS: SENNOSIDES 8.6 MG TAB PO SCH (09:23)
[2022-12-30] MEDS: FAMOTIDINE 20 MG TAB PO SCH ×2 (09:23→21:02)
[2022-12-30] MEDS: GABAPENTIN 300 MG CAP PO SCH ×3 (09:23→21:02)
--- NOTE | 2022-12-30 10:06 | P.PN ---
Subjective Progress Note Date: 12/30/22 Principal diagnosis: Low back pain; bilateral lower extremity radiculopathy Patient was seen at bedside this morning lying recumbent position in bed. Patient says she is looking forward to epidural steroid injection later this morning. Patient says she is hoping this injection helps control her symptoms. Patient feels that the gabapentin and Flexeril have been helping somewhat with her symptoms. Patient says she did get up to go to the bathroom and used a walker and had some increasing pain down the bilateral lower extremities when she was walking. Patient denies any new changes. Patient denies chest pain, fever, shortness breath, nausea, vomiting, change in vision, loss of bowel/bladder control. Objective - Vital Signs Vital signs: Vital Signs Temp 98.2 F 12/30/22 02:17 Pulse 76 12/30/22 02:17 Resp 16 12/30/22 02:17 BP 134/69 12/30/22 02:17 Pulse Ox 96 12/30/22 02:17 FiO2 Intake & Output 12/29/22 12/30/22 12/30/22 18:59 06:59 18:59 Intake Total 238 Balance 238 Intake: Oral 238 Other: # Voids 1 1 - Exam Inspection: Negative for any open fractures, significant ecchymosis/erythema/ulcers. Palpation: Moderatesignificant tenderness to patient over the bilateral SI joints and over the lower lumbar spine at midline. Nontender to palpation throughout rest exam. Sensation: Sensation is equal, symmetric, bilaterally intact throughout the upper and lower extremities Range of motion: Patient does have limited range of motion and left hips and flexion/extension due to referred pain from the low back. Patient does have full range of motion bilateral upper extremities and in knees and ankles and flexion/extension and dorsiflexion/plantarflexion. Motor: 5/5 in all major motor groups in bilateral upper extremity is in exam. 4+/5 in EHL//FHL and bilateral ankles in dorsi/plantar flexion. 4/5 in resisted knee flexion/extension bilaterally. 4-/5 in resisted hip flexion/extension bilat erally Neurovascular status: Radial pulses intact, 2+. Cap refill under 3 seconds in digits upper extremity. DP pulses intact bilaterally. Special tests: Negative Homans bilaterally. Negative clonus bilaterally. Negative Homans bilaterally. Assessment and Plan Assessment: 1. Low back pain; bilateral lower extremity radiculopathy Plan: 1. Low back pain; bilateral lower extremity radiculopathy - MRI of the lumbar spine does reveal degenerative disc disease disc bulging at L5-S1 as well as neural foraminal stenosis at L5-S1. At this time we are not recommending any emergent/urgent orthopedic surgical intervention. Pain management has been consulted for L5-S1 neuroforaminal stenosis. Pain mangement planning on HARSHA t bakari. Patient NPO this morning. We have ordered IV steroids to help with his symptoms as well as gabapentin and Flexeril. Patient may weight-bear as tolerated with walker/cane as necessary. PT/OT recommendations. Plan for discharge home tmrw. 2. Appreciate medical management and interventional radiology management 3. Pain management - gabapentin; Flexeril 4. GI prophylaxis - senna 5. DVT prophylaxis recs 6. PT/OT - weightbearing as tolerated with walker/cane as necessary 7. Encourage incentive spirometer use 8. Discharge planning - plan for discharge home tmrw. Time with Patient: Less than 30
--- NOTE | 2022-12-30 12:46 | P.PCN ---
Date of Procedure: 12/30/22 Procedure(s) Performed: PREOPERATIVE DIAGNOSIS: 1- Lumbar Degenerative Disc Diseases 2-Lumbar Radiculopathy. 3-lumbar foramina stenosis POSTOPERATIVE DIAGNOSIS: Same as preop diagnosis PROCEDURE 1. Lumbar epidural steroid injection under fluoroscopic guidance at the L5-S1 level. (Fluoroscopy imaging was available in radiology department) 2. Lumbar epidurogram. ANESTHESIA: moderate sedation with intravenous Versed 2 mg ,and fentanyle 100 Mcg Sedation start time : 1238 Sedation end time : 1244 EBL: Minimal PROCEDURE INDICATION: The patient with low back pain and radiculitis symptoms unresponsive to conservative treatment. Fluoroscopy was used to optimize visualization of the needle placement and to maximize safety. PROCEDURE DESCRIPTION / TECHNIQUE: The patient was seen and identified in the preoperative area. Risks, benefits, complications including but not limited to infections ,bleeding ,allergic reaction to the medications ,nerve damage and not complete pain releife , and alternatives were discussed with the patient. The patient agreed to proceed with the procedure and signed the consent. IV was started, and vital signs were stable. Patient was taken to the OR and time out was completed. The patient was placed in the prone position on procedure table and a pillow was placed under the abdomen to reduce lumbar lordosis. The lumbosacral area was prepped and draped in the usual sterile fashion.ere closely monitored during the procedure. Conscious sedation was used during the procedure to decrease patients anxiety. Vital signs was monitered during the entire procedure. Using anterior-posterior fluoroscopy, the L5-S1 interlaminar space was identified and the skin over this site was marked and then infiltrated with 1% lidocaine subcutaneously. Subsequently, a 20-gauge Tuohy epidural needle was inserted and advanced toward the epidural space using the ``Loss of resistance technique and guided by AP and lateral fluoroscopy. The correct needle position in the epidural space was verified with the injection of 2 mL of the water soluble contrast dye Isovue 200 contrast and observing an excellent epidurogram with the epidural spread of the dye, after negative aspiration for blood and CSF and in the absence of paresthesias. Again after negative aspiration, a 6 ml mixture containing 80 mg of Depo-medrol ( Preservetive Free ), and 2 ml of preservative free Normal Saline, and 2 ml of preservative free lidocaine 1% solution was injected and a washout of epidurogram was seen. Needle was withdrawn intact, skin was cleansed, and bandages were applied. COMPLICATIONS: None DISPOSITION / PLANS: The patient was placed in a supine position and transferred to the recovery area in a stable condition for observation. There was no evidence of lower extremity motor or sensory deficit after the procedure. Patient was discharged from the recovery room after meeting discharge criteria. Home discharge instructions were given to the patient by the staff. The patient was reexamined prior to discharge. The patient will schedule a follow up in the clinic in 2-4 weeks.
--- NOTE | 2022-12-30 13:52 | FL ---
EXAMINATION TYPE: FL guided pain mgmt statistic DATE OF EXAM: 12/30/2022 HISTORY: Fluoroscopy time Total dose area product (DAP) in uGy*m?, mGy*cm? (or similar): 0.31073 IMPRESSION: 1. Fluoroscopy time.
--- NOTE | 2022-12-30 15:01 | P.PN ---
Subjective Progress Note Date: 12/30/22 This is a 52 year old female with history of asthma, hypertension and lupus maintained on daily steroid. Patient presents to the hospital with complaints of lower back pain with radiation into bilateral legs down to the knees. Patient reports last tuesday her day off work she was doing her usual activity. Had gotten a delivery of dog food about 25 lbs and brought inside. Went to work on Tuesday and states by the middle of the day the pain was not tolerable. Patient has been at home since basically going from the bathroom back to lay down. Patient was seen at [facility] Tuesday and was discahrged home with norco and muscle relaxers. Patient had been using without much relief. Patient went to see the PA at [facility] and had 2 xrays done states that the pain was too unbearable and was sent to the ER for further evaluation. Patient does report feeling numbness more on the right leg including the perineum. Denies any loss of bladder or bowel. Patient had a lumbar spine MRi done showing very heterogenous marrow signal suggesting prominent marrow hyperplasia. Moderate degenerative disc disease L5-S1 with some inferior migration of the posteriorly bulging disc material and a left lateral disc osteophyte complex. Some associated edematous modic type 1 endplate change here. White there is no significant spinal canal stenosis, there may be impingement of the exiting right L5 nerve root at this level. Additionally, the left lateral disc osteophyte complex abuts the extraforaminal left L5 nerve root at this level. Patient was admitted to the hospital under orthopedics services and has been started on IV decadron and pain management. Patient does report pain is atleast tolerable and the edge is taken off. Patient is having increased blood pressure up in the 200s systolic likely from pain and patient has been resumed on home atenolol and has been recommended to start losartan. Patient will be evaluated by pain management services for possible epidural injection. 12/30/2022 Patient evaluated on medical floor reports back pain has improved down to a 7/10 and 5/10 after IV pain mediation. Patient to undergo epidural injection with anesthesia services today. Decadron is being tapered. Patients blood pressure down to 133/71 has been refusing the losartan. Does report feeling less numb on the right side. Review of Systems Constitutional: Denied any fatigue denied any fever. Cardio vascular: denied any chest pain, palpitations Gastrointestinal: denied any nausea, vomiting, diarrhea Pulmonary: Denied any shortness of breath cough Neurologic denied any new focal deficits All inpatient medications were reviewed and appropriate changes in these medications as dictated in the interval history and assessment and plan. PHYSICAL EXAMINATION: GENERAL: The patient is alert and oriented x3, not in any acute distress. Well developed, well nourished. HEENT: Pupils are round and equally reacting to light. EOMI. No scleral icterus. No conjunctival pallor. Normocephalic, atraumatic. No pharyngeal erythema. No thyromegaly. CARDIOVASCULAR: S1 and S2 present. No murmurs, rubs, or gallops. PULMONARY: Chest is clear to auscultation, no wheezing or crackles. ABDOMEN: Soft, nontender, nondistended, normoactive bowel sounds. No palpable organomegaly. MUSCULOSKELETAL: No joint swelling or deformity. EXTREMITIES: No cyanosis, clubbing, or pedal edema. NEUROLOGICAL: Gross neurological examination did not reveal any focal deficits. Patient has postive pedal and post tib pulses. Positive has increased pain with hip flexion and extension. SKIN: No rashes. Assessment Low back pain with bilateral lumbar radiculopathy with L5 nerve root impingement on imaging Hypertension exacerbated by pain level improving History of asthma maintained on inhalers at home, has followed with Dr. Malave in the past History of lupus maintained on oral prednisone GI prophylaxis DVT prophylaxis as per primary Full Code Plan Pain management consultation in place Patient has been started on IV decadron which is being tapered Continue with pain management and bowel regimen Continue home blood pressure medication and has been started on losartan. Continue to monitor blood pressure closely. Patient to undergo epidural injection with anesthesia services today and monitor overnight Possible D/C in the next 24 hours. The impression and plan of care has been dictated by Fern Becerril Nurse Practitioner as directed. Dr. Sena MD I have performed a history and physical examination and medical decision making of this patient, discussed the same with the dictator, and agree with the dictators assessment and plan as written, documented as a scribe. Based on total visit time, I have performed more than 50% of this visit. Objective - Vital Signs Vital signs: Vital Signs Temp 98 F 12/30/22 13:54 Pulse 81 12/30/22 14:18 Resp 18 12/30/22 14:18 BP 133/71 12/30/22 14:18 Pulse Ox 99 12/30/22 14:18 FiO2 Intake & Output 12/29/22 12/30/22 12/30/22 18:59 06:59 18:59 Intake Total 238 120 Balance 238 120 Intake: Oral 238 120 Other: # Voids 1 1 1 Assessment and Plan Time with Patient: Less than 30
[2022-12-31 02:50] VITALS: RESP 16
[2022-12-31] MEDS: atenoloL 25 MG TAB PO SCH (06:23)
[2022-12-31] MEDS: DEXAMETHASONE SOD PHOSPHATE 4 MG/ML 1 ML VIAL IVP SCH ×2 (06:23→11:26)
[2022-12-31] MEDS: HYDROmorphone 0.5 MG/0.5 ML SYRINGE IVP PRN ×2 (06:24→11:26)
--- NOTE | 2022-12-31 10:32 | P.PN ---
Subjective Progress Note Date: 12/31/22 Principal diagnosis: Low back pain; bilateral lower extremity radiculopathy Patient was seen at bedside this morning lying in semirecumbent position. Patient did have L5-S1 lumbar epidural steroid injection performed yesterday. Patient notes some relief since the injection because she states she can externally rotate both hips without being in severe pain as well as flex both hips to her chest with limited pain. Patient also mentions that some numbness and tingling down her lower leg has gone away since the procedure was performed yesterday. Patient says she is still having some numbness and tingling from the buttocks just proximal to the knee, however, patient says this seems to be lessening as well. Patient says she does have a walker and cane at home. Patient says she has been able walk to the bathroom in the room under own power. Patient feels that the gabapentin and Flexeril have been helping somewhat with her symptoms. Patient denies any other changes. Patient denies chest pain, fever, shortness breath, nausea, vomiting, change in vision, loss of crystal wel/bladder control. Objective - Vital Signs Vital signs: Vital Signs Temp 98.4 F 12/31/22 08:10 Pulse 83 12/31/22 08:10 Resp 16 12/31/22 08:10 BP 176/84 12/31/22 08:10 Pulse Ox 99 12/31/22 08:10 FiO2 Intake & Output 12/30/22 12/31/22 12/31/22 18:59 06:59 18:59 Intake Total 240 Balance 240 Intake: Oral 240 Other: Voiding Method Toilet # Voids 0 2 - Exam Inspection: Negative for any open fractures, significant ecchymosis/ erythema/ulcers. Palpation: Moderate tenderness to palpation over the bilateral SI joints and over the lower lumbar spine at midline. Nontender to palpation throughout rest exam. Sensation: Sensation is equal, symmetric, bilaterally intact throughout the upper and lower extremities Range of motion: Patient does have limited range of motion in left hip in flexion/extension due to referred pain from the low back. Patient does have full range of motion bilateral upper extremities and in knees and ankles and flexion/extension and dorsiflexion/plantarflexion. Motor: 5/5 in all major motor groups in bilateral upper extremity is in exam. 4+/5 in EHL//FHL and bilateral ankles in dorsi/plantar flexion. 4/5 in resisted knee flexion/extension bilaterally. 4-/5 in resisted hip flexion/extension bilaterally Neurovascular status: Radial pulses intact, 2+. Cap refill under 3 seconds in digits upper extremity. DP pulses intact bilaterally. Special tests: Negative Homans bilaterally. Negative clonus bilaterally. Negative Homans bilaterally. Assessment and Plan Assessment: 1. Low back pain; bilateral lower extremity radiculopathy Plan: 1. Low back pain; bilateral lower extremity radiculopathy - MRI of the lumbar spine does reveal degenerative disc disease disc bulging at L5-S1 as well as neural foraminal stenosis at L5-S1. At this time we are not recommending any emergent/urgent orthopedic surgical intervention. Pain management performed L5- S1 lumbar epidural steroid injection yesterday. Patient may weight-bear as tolerated with walker/cane as necessary. PT/OT recommendations. Recommend to follow up with Dr. Keith in office in 2 weeks. Discharge home today. 2. Appreciate medical management and interventional radiology management 3. Pain management - gabapentin; Flexeril 4. GI prophylaxis - senna 5. DVT prophylaxis recs 6. PT/OT - weightbearing as tolerated with walker/cane as necessary 7. Encourage incentive spirometer use 8. Discharge planning - discharge home today. Time with Patient: Less than 30
[2022-12-31] MEDS: SENNOSIDES 8.6 MG TAB PO SCH (10:38)
--- NOTE | 2022-12-31 10:44 | P.DS ---
Providers Date of admission: 12/28/22 10:57 Expected date of discharge: 12/31/22 Attending physician: Sanjay Keith DO Consults: 12/28/22 16:14 Consult Physician Routine Consulting Provider: Jef Lucio Consult Reason/Comments: medical management Do you want consulting provider notified?: Yes 12/28/22 16:15 Consult Physician Routine Consulting Provider: Joel Benson Consult Reason/Comments: Pain management - L5 neuroforaminal stenosis Do you want consulting provider notified?: Yes Primary care physician: Joselo Symmes Hospital Course: Date of admission: 12/28/2022 Date of discharge: 12/31/2022 Admission diagnosis: Low back pain; lumbar radiculopathy Discharge diagnosis: same Attending physician: Dr. Keith Surgical procedures: L5-S1 lumbar epidural steroid injection Brief history: Patient is a 52-year-old female with a history of L5-S1 disc herniation and L5-S1 neuro foraminal stenosis. At this point patient has failed conservative treatment measures and has opted to proceed with a elective L5-S1 lumbar epidural steroid injection. Hospital course: Details of patient's surgery can be found in operative report. Patient tolerated the procedure well and was subsequently transported to orthopedic floor. Patient's orthopeidc and medical care was provided daily. Patient had daily laboratory tests performed for evaluation of overall blood counts. Patient had daily physical therapy to include strengthening range of motion as well as education with walker ambulation. Patient was noted to have a relatively uneventful post-procedural course. Patient reported satisfactory pain control with oral pain medications by post-procedure day 1. Patient showed satisfactory progress with physical therapy. Patient moved steadily through the program and had no difficulty meeting the goals by post-procedure day 1. Given patient's otherwise satisfactory course and having met physical therapy goals, p lui is to discharge patient home on post-procedure day 1. Discharge condition/disposition: Patient will be discharged home in stable condition. Discharge medications: Instructions are given on resumption of patient's normal daily medications per primary care recommendation, in addition patient will be prescribed Mcrae Helena; Flexeril; gabapentin; senna. Assessment: L5-S1 disc herniation; L5-S1 neural foraminal stenosis Procedures: L5-S1 lumbar epidural steroid injection Patient Condition at Discharge: Good Plan - Discharge Summary New Discharge Prescriptions: New Gabapentin 300 mg PO TID #30 cap HYDROcodone/APAP 5-325MG [Mcrae Hel[place] 5-325] 1 tab PO Q6HR PRN #21 tab PRN Reason: Pain Cyclobenzaprine [Flexeril] 10 mg PO TID #30 tab Sennosides/Docusate Sodium [Senna Plus 8.6-50 mg Softgel] 1 each PO DAILY #20 capsule No Action Ibuprofen [Motrin] 800 mg PO Q8H PRN PRN Reason: Pain predniSONE 10 mg PO AC-SUPPER atenoloL 25 mg PO AC-BID methocarbamoL [Robaxin-750] 750 mg PO QID PRN PRN Reason: Muscle Spasm Alendronate Sodium [Fosamax] 70 mg PO ABBASI Acetaminophen-Codeine 300-30mg [Tylenol w/codeine #3] 1 tab PO Q6H PRN PRN Reason: Pain Discharge Medication List Acetaminophen-Codeine 300-30mg [Tylenol w/codeine #3] 1 tab PO Q6H PRN 12/28/22 [History] Alendronate Sodium [Fosamax] 70 mg PO ABBASI 12/28/22 [History] Ibuprofen [Motrin] 800 mg PO Q8H PRN 12/28/22 [History] atenoloL 25 mg PO AC-BID 12/28/22 [History] methocarbamoL [Robaxin-750] 750 mg PO QID PRN 12/28/22 [History] predniSONE 10 mg PO AC-SUPPER 12/28/22 [History] Cyclobenzaprine [Flexeril] 10 mg PO TID #30 tab 12/31/22 [Rx] Gabapentin 300 mg PO TID #30 cap 12/31/22 [Rx] HYDROcodone/APAP 5-325MG [Mcrae Helena 5-325] 1 tab PO Q6HR PRN #21 tab 12/31/22 [Rx] Sennosides/Docusate Sodium [Senna Plus 8.6-50 mg Softgel] 1 each PO DAILY #20 capsule 12/31/22 [Rx] Follow up Appointment(s)/Referral(s): Joselo Scott DO [Primary Care Provider] - 1-2 days Sanjay Keith DO [Doctor of Osteopathic Medicine] - 2 Weeks Joel Benson MD [STAFF PHYSICIAN] - 2 Weeks Patient Instructions/Handouts: Epidural Steroid Injection (DC) Activity/Diet/Wound Care/Special Instructions: 1. weight-bear as tolerated with walker/cane 2. pain medication as needed/prescribed 3. contact hospital if you have any severe headaches/dizziness 4. follow up with Dr. Keith in 2 weeks in office. 5. follow up in offcie with/contact pain management team about further interventions 6. contact [facility] at [phone] for any further questions Discharge Disposition: HOME SELF-CARE
[2022-12-31] MEDS: LOSARTAN 25 MG TAB PO SCH (11:05)
[2022-12-31] MEDS: GABAPENTIN 300 MG CAP PO SCH (11:09)
[2022-12-31] MEDS: FAMOTIDINE 20 MG TAB PO SCH (11:09)
--- NOTE | 2022-12-31 11:44 | P.PN ---
Subjective Progress Note Date: 12/31/22 This is a 52 year old female with history of asthma, hypertension and lupus maintained on daily steroid. Patient presents to the hospital with complaints of lower back pain with radiation into bilateral legs down to the knees. Patient reports last tuesday her day off work she was doing her usual activity. Had gotten a delivery of dog food about 25 lbs and brought inside. Went to work on Tuesday and states by the middle of the day the pain was not tolerable. Patient has been at home since basically going from the bathroom back to lay down. Patient was seen at [facility] Tuesday and was discahrged home with norco and muscle relaxers. Patient had been using without much relief. Patient went to see the PA at [facility] and had 2 xrays done states that the pain was too unbearable and was sent to the ER for further evaluation. Patient does report feeling numbness more on the right leg including the perineum. Denies any loss of bladder or bowel. Patient had a lumbar spine MRi done showing very heterogenous marrow signal suggesting prominent marrow hyperplasia. Moderate degenerative disc disease L5-S1 with some inferior migration of the posteriorly bulging disc material and a left lateral disc osteophyte complex. Some associated edematous modic type 1 endplate change here. White there is no significant spinal canal stenosis, there may be impingement of the exiting right L5 nerve root at this level. Additionally, the left lateral disc osteophyte complex abuts the extraforaminal left L5 nerve root at this level. Patient was admitted to the hospital under orthopedics services and has been started on IV decadron and pain management. Patient does report pain is atleast tolerable and the edge is taken off. Patient is having increased blood pressure up in the 200s systolic likely from pain and patient has been resumed on home atenolol and has been recommended to start losartan. Patient will be evaluated by pain management services for possible epidural injection. 12/30/2022 Patient evaluated on medical floor reports back pain has improved down to a 7/10 and 5/10 after IV pain mediation. Patient to undergo epidural injection with anesthesia services today. Decadron is being tapered. Patients blood pressure down to 133/71 has been refusing the losartan. Does report feeling less numb on the right side. 12/31/2022 Patient is evaluated on the medical floor status post epidural injection. Patient reports improvement in pain and more tolerable has been able to tolerate activity better and range of motion ins improving. Patient has positive pedal pulses bilaterally. No shortness of breath no chest pain. Discussed with orthopedics PA and recommending naprosyn BID on discharge versus motrin and patient is agreeable to this plan. Recommending losartan daily for tighter blood pressure control at this time patient has refused this medication and remains on atenolol. Expect with improvement in pain patients blood pressure will improve. Patient is continued on IV decadron and will recommend medrol dose pack on discharge for oral steroid taper. Patient to follow up with orthopedics and pain management services on discharge. Wound benefit also from outpatient physical therapy and this script will need to be provided by patients primary care provider. Patient will be discharged home today, medically she is stable. Review of Systems Constitutional: Denied any fatigue denied any fever. Cardio vascular: denied any chest pain, palpitations Gastrointestinal: denied any nausea, vomiting, diarrhea Pulmonary: Denied any shortness of breath cough Neurologic denied any new focal deficits All inpatient medications were reviewed and appropriate changes in these medic ations as dictated in the interval history and assessment and plan. PHYSICAL EXAMINATION: GENERAL: The patient is alert and oriented x3, not in any acute distress. Well developed, well nourished. HEENT: Pupils are round and equally reacting to light. EOMI. No scleral icterus. No conjunctival pallor. Normocephalic, atraumatic. No pharyngeal erythema. No thyromegaly. CARDIOVASCULAR: S1 and S2 present. No murmurs, rubs, or gallops. PULMONARY: Chest is clear to auscultation, no wheezing or crackles. ABDOMEN: Soft, nontender, nondistended, normoactive bowel sounds. No palpable organomegaly. MUSCULOSKELETAL: No joint swelling or deformity. EXTREMITIES: No cyanosis, clubbing, or pedal edema. NEUROLOGICAL: Gross neurological examination did not reveal any focal deficits. Patient has positive pedal and post tib pulses. Continues with pain with hip flexion and extension however has improved and has increased mobility. SKIN: No rashes. Assessment Low back pain with bilateral lumbar radiculopathy with L5 nerve root impingement s/p epidural injection with pain management services. Hypertension exacerbated by pain level improving History of asthma maintained on inhalers at home, has followed with Dr. Malave in the past History of lupus maintained on oral prednisone GI prophylaxis DVT prophylaxis as per primary Full Code Plan Follow up with anesthesia on discharge patient is status post epidural injection. Patient has been on IV decadron will discharge with oral steroid taper Continue with pain management and bowel regimen Continue home blood pressure medication and has been started on losartan. Continue to monitor blood pressure closely. Recommending naproysn BID on discharge in place of motrin patient is agreeable and this was discussed with orthopedics PA Medically patient is clear for discharge Thank you for this consultation The impression and plan of care has been dictated by Fern Becerril, Nurse Practitioner as directed. Dr. Sena MD I have performed a history and physical examination and medical decision making of this patient, discussed the same with the dictator, and agree with the dictators assessment and plan as written, documented as a scribe. Based on total visit time, I have performed more than 50% of this visit. Objective - Vital Signs Vital signs: Vital Signs Temp 98.4 F 12/31/22 08:10 Pulse 83 12/31/22 08:10 Resp 16 12/31/22 08:10 BP 176/84 12/31/22 08:10 Pulse Ox 99 12/31/22 08:10 FiO2 Intake & Output 12/30/22 12/31/22 12/31/22 18:59 06:59 18:59 Intake Total 240 480 Balance 240 480 Intake: Oral 240 480 Other: Voiding Method Toilet # Voids 0 2 Assessment and Plan Time with Patient: Less than 30
[2022-12-31 15:40] VITALS: BP 181/83; PULSE 70; TEMP 97.7
== END 2022-12-31 17:27 | disposition home or self-care (01) ==
LOC: EC 10:34 → 6NMEDSUR 10:57
PROVIDERS: ADMIT Orthopaedic Surgery; ATTEND Orthopaedic Surgery
DX: M51.16 Intervertebral disc disorders with radiculopathy, lumbar region (principal); M51.37 Other intervertebral disc degeneration, lumbosacral region; M48.07 Spinal stenosis, lumbosacral region; M32.9 Systemic lupus erythematosus, unspecified; M25.78 Osteophyte, vertebrae; J45.909 Unspecified asthma, uncomplicated; I10 Essential (primary) hypertension; F10.90 Alcohol use, unspecified, uncomplicated; Z88.0 Allergy status to penicillin; Z79.83 Long term (current) use of bisphosphonates; Z79.52 Long term (current) use of systemic steroids
CPT/HCPCS: 96376 ×4; 96372; 96374; 96375; 99284; 97163; 97167; 72148; 62323; 99152; G0378 ×4; J1100 ×4; J1885; J1170 ×4

== ENCOUNTER → 2023-01-06 | Outpatient (CLI) | payer BC ==
--- NOTE | 2023-01-06 14:54 | P.PAINPG ---
PQRS Measure Charge Sheet Comment: A 52 yr old female with a history of severe and chronic LBP secondary to lumbar DDD and spondylosis with facet arthropathy without myelopathy presents today for evaluation s/p HARSHA L5-S1. Pt states she experienced 50 % pain relief x 2 days s/p procedure. Pain level is provoked at 8/10 in intensity, constant, localized in the lumbar spine, burning in character w shooting towards the RLE. Pain is provoked by standing from a sitting position. Pain is alleviated with heat, ice, injections, reclining, laying on her R side, use of a cane for ambulatory assistance, medications, topical, repositioning and rest. Pt wants to try PT. Interventional pain procedures completed include HARSHA L5-S1 Patient is currently on Aleve, Neurontin Patient denies any side effects of the medication(s), denies excessive drowsiness or sleepiness, denies suicidal ideation and reports that the current pain medication is helping to control the pain and improve activities of daily living. Patient denies any motor or sensory deficits. Patient denies any fever or night sweats, denies any change in the bowel movements or urination. Physical Examination: -Constitutional: Cooperative. Not in acute distress . - Neurologic: Cranial nerve II to XII intact. No focal neurological deficits. - Psychatric: Alert & oriented x 3. Matching mood & appropriate affect. Judgment and insight intact. - Musculoskeletal: Cervical spine: Muscle bulk/ tone/ strength in the bilateral upper extremities normal Vertebral body tenderness to palpation over Spurling test positive Distraction test positive Facet loading test positive TTP Thoracic spine Muscle bulk / tone/ strength in the bilateral paraspinal muscles normal Vertebral body tender to palpation over Facet loading test positive TTP Lumbar spine: Motor bulk/ tone/ strength lower extremities , thigh and legs : 5/5 Deep tendon reflexes : Normal Knee Jerk. Normal Ankle Jerk . Vertebral body tenderness to palpation over L4 Epperson Test positive Lumbar Facet Loading Test positive Straight Leg Raise: positive at 30 degrees right side/ left side Gaenslen's Test positive Sacral spine : Severe tenderness over the Sacroiliac joint: right side / left side Range of motion: Flexion of the lumbar spine <60 degrees Range of motion: Extension of the lumbar spine <20 degrees Gaenslen's Test positive right side / left side Gama test: positive right side / left side Thigh Thrust Test positive right side / left side Sacral Thrust Test positive right side / left side Assessment and plan: Chronic LBP secondary to lumbar DDD, spondylosis with facet arthropathy without myelopathy Recommendation of PT x 6 wks re: M51.36. May follow up in 6 wks for a re evaluation. Narcotic agreement signed today 01/06/23 for Neurontin 300mg #90 w 1 RF. Use, side effects, adverse reactions and safe storage discussed. All questions answered. I have spent less than 30 minutes on patient care today. Dr Benson was available by phone for the evaluation of this patient. The time was used to review the medical records including relevant urine studies and Prescription history (MAPs), review of the available imaging, evaluation and examination of the patient, coordination of care with the medical staff and if applicable referring physicians, as well as creation of the medical record Home Medications: Ambulatory Orders Acetaminophen-Codeine 300-30mg [Tylenol w/codeine #3] 1 tab PO Q6H PRN 12/28/22 Alendronate Sodium [Fosamax] 70 mg PO ABBASI 12/28/22 atenoloL 25 mg PO AC-BID 12/28/22 predniSONE 10 mg PO AC-SUPPER 12/28/22 Cyclobenzaprine [Flexeril] 10 mg PO TID #30 tab 12/31/22 HYDROcodone/APAP 7.5-325MG [[place] 7.5-325] 1 tab PO Q6HR PRN #18 tab 12/31/22 Losartan [Cozaar] 25 mg PO DAILY #30 tab 12/31/22 Naproxen [Naprosyn] 250 mg PO BID PRN #60 tab 12/31/22 Sennosides/Docusate Sodium [Senna Plus 8.6-50 mg Softgel] 1 each PO DAILY #20 capsule 12/31/22 methylPREDNISolone Dose Pack [Medrol Dose Pack] 4 mg PO DIRECTED #1 packet 12/31/22 Gabapentin 300 mg PO TID 30 Days #90 cap 01/06/23 Controlled Substance Measures - Controlled Substance Measures Is patient prescribed a controlled substance at discharge?: Yes When asked, does pt state using other controlled substances?: Yes If prescribed controlled substance>3 days was MAPS reviewed?: Yes If Rx opioid, was Start Talking consent form obtained?: Yes If opioid is for acute pain is fill amount 7 days or less?: No Was information provided regarding opioid addiction?: Yes
[2023-01-06 15:09] VITALS: BP 174/79; PULSE 78; RESP 18; TEMP 98.3
== END ==
LOC: PNWHC3 13:02
PROVIDERS: ATTEND Specialist
DX: M51.37 Other intervertebral disc degeneration, lumbosacral region (principal); M47.817 Spondylosis without myelopathy or radiculopathy, lumbosacral region; G89.29 Other chronic pain; Z88.0 Allergy status to penicillin
CPT/HCPCS: 99211

== ENCOUNTER → 2023-03-03 | Outpatient (CLI) | payer BC ==
[2023-03-03 13:44] VITALS: BP 168/100; PULSE 87; RESP 14; TEMP 98.1
--- NOTE | 2023-03-03 14:05 | P.PAINPG ---
PQRS Measure Charge Sheet Comment: A 52 yr old female with a history of severe and chronic LBP secondary to lumbar DDD and spondylosis with facet arthropathy without myelopathy presents today for medication refills. Pain level is provoked at 2/10 in intensity, constant, localized in the lumbar spine, burning in character w shooting towards the RLE. Pain is provoked by standing from a sitting position. Pain is alleviated with heat, ice 3-4 times daily, injections, reclining, laying on her R side, use of a cane for ambulatory assistance, medications, topical, use of a lumbar support brace, repositioning and rest. Pt is scheduled for Lumbar Fusion on 03/16/23. Will hold off of PT until after surgery. Interventional pain procedures completed include HARSHA L5-S1 x1 Patient is currently on Aleve, Neurontin Patient denies any side effects of the medication(s), denies excessive drowsiness or sleepiness, denies suicidal ideation and reports that the current pain medication is helping to control the pain and improve activities of daily living. Patient denies any motor or sensory deficits. Patient denies any fever or night sweats, denies any change in the bowel movements or urination. Physical Examination: -Constitutional: Cooperative. Not in acute distress . - Neurologic: Cranial nerve II to XII intact. No focal neurological deficits . - Psychatric: Alert & oriented x 3. Matching mood & appropriate affect. Judgment and insight intact. - Musculoskeletal: Cervical spine: Muscle bulk/ tone/ strength in the bilateral upper extremities normal Vertebral body tenderness to palpation over Spurling test positive Distraction test positive Facet loading test positive TTP Thoracic spine Muscle bulk / tone/ strength in the bilateral paraspinal muscles normal Vertebral body tender to palpation over Facet loading test positive TTP Lumbar spine: Motor bulk/ tone/ strength lower extremities , thigh and legs : 5/5 Deep tendon reflexes : Normal Knee Jerk. Normal Ankle Jerk . Vertebral body tenderness to palpation over L4 Epperson Test positive Lumbar Facet Loading Test positive Straight Leg Raise: positive at 30 degrees right side/ left side Gaenslen's Test positive Sacral spine : Severe tenderness over the Sacroiliac joint: right side / left side Range of motion: Flexion of the lumbar spine <60 degrees Range of motion: Extension of the lumbar spine <20 degrees Gaenslen's Test positive right side / left side Gama test: positive right side / left side Thigh Thrust Test positive right side / left side Sacral Thrust Test positive right side / left side Assessment and plan: Chronic LBP secondary to lumbar DDD, spondylosis with facet arthropathy without myelopathy Recommendation of medication management. Refills of Neurontin 300mg #90, Flexeril w 1 RF. Use, side effects, adverse reactions and safe storage discussed. All questions answered. I have spent less than 30 minutes on patient care today. Dr Benson was available by phone for the evaluation of this patient. The time was used to review the medical records including relevant urine studies and Prescription history (MAPs), review of the available imaging, evaluation and examination of the patient, coordination of care with the medical staff and if applicable referring physicians, as well as creation of the medical record PQRS Narrative: Hx Alcohol Use (MH) No Home Medications: Ambulatory Orders Acetaminophen-Codeine 300-30mg [Tylenol w/codeine #3] 1 tab PO Q6H PRN 12/28/22 Alendronate Sodium [Fosamax] 70 mg PO ABBASI 12/28/22 atenoloL 25 mg PO AC-BID 12/28/22 predniSONE 10 mg PO AC-SUPPER 12/28/22 Losartan [Cozaar] 25 mg PO DAILY #30 tab 12/31/22 Naproxen [Naprosyn] 250 mg PO BID PRN #60 tab 12/31/22 Sennosides/Docusate Sodium [Senna Plus 8.6-50 mg Softgel] 1 each PO DAILY #20 capsule 12/31/22 methylPREDNISolone Dose Pack [Medrol Dose Pack] 4 mg PO DIRECTED #1 packet 12/31/22 HYDROcodone/APAP 7.5-325MG [[employer] 7.5-325] 1 tab PO Q6HR PRN #18 tab 01/12/23 Cyclobenzaprine [Flexeril] 10 mg PO TID PRN 30 Days #90 tab 03/03/23 Gabapentin 300 mg PO TID 30 Days #90 cap 03/03/23 Controlled Substance Measures - Controlled Substance Measures Is patient prescribed a controlled substance at discharge?: Yes When asked, does pt state using other controlled substances?: Yes If prescribed controlled substance>3 days was MAPS reviewed?: Yes
== END ==
LOC: PNWHC3 12:55
PROVIDERS: ATTEND Specialist
DX: M51.36 Other intervertebral disc degeneration, lumbar region (principal); M47.816 Spondylosis without myelopathy or radiculopathy, lumbar region; G89.29 Other chronic pain; Z88.0 Allergy status to penicillin
CPT/HCPCS: 99211

== ENCOUNTER → 2023-03-10 | Outpatient (CLI) | payer BC ==
[2023-03-10 15:49] LABS: Basophils % (A) 1 %; Eosinophils # (A) 0.1 k/uL (0-0.7); Eosinophils % (A) 2 %; HCT 33.4 % (34.0-46.0); HGB 11.5 gm/dL (11.4-16.0); Lymphocytes # (A) 1.7 k/uL (1.0-4.8); Lymphocytes % (A) 28 %; MCH 32.9 pg (25.0-35.0); MCHC 34.4 g/dL (31.0-37.0); MCV 95.6 fL (80.0-100.0); Mean Platelet Volume 7.1; Monocytes # (A) 0.5 k/uL (0-1.0); Monocytes % (A) 8 %; Neutrophils # (A) 3.7 k/uL (1.3-7.7); Neutrophils % (A) 60 %; Platelet Count 322 k/uL (150-450); RDW 12.5 % (11.5-15.5); WBC 6.2 k/uL (3.8-10.6)
[2023-03-10 15:51] LABS: Prothrombin Time 10.4 sec (9.0-12.0)
[2023-03-10 16:04] LABS: African American GFR (CKD) >90 (>60 ml/min/1.73 sqM); Anion Gap 8 mmol/L; Blood Urea Nitrogen 12 mg/dL (7-17); Calcium 9.3 mg/dL (8.4-10.2); Carbon Dioxide 27 mmol/L (22-30); Chloride 92 mmol/L (98-107); Glucose 82 mg/dL (74-99); Non-African American GFR(CKD) 85 (>60 ml/min/1.73 sqM); Potassium 4.4 mmol/L (3.5-5.1); Sodium 127 mmol/L (137-145)
== END | disposition home or self-care (01) ==
LOC: LABWHC1 14:48
PROVIDERS: ATTEND Family Medicine
DX: Z01.812 Encounter for preprocedural laboratory examination (principal)
CPT/HCPCS: 36415; 80048; 85025; 85610

== ENCOUNTER → 2023-03-14 | Outpatient (CLI) | payer BC ==
[2023-03-14 12:15] LABS: African American GFR (CKD) >90 (>60 ml/min/1.73 sqM); Anion Gap 8 mmol/L; Blood Urea Nitrogen 10 mg/dL (7-17); Calcium 9.4 mg/dL (8.4-10.2); Carbon Dioxide 27 mmol/L (22-30); Chloride 94 mmol/L (98-107); Glucose 93 mg/dL (74-99); Non-African American GFR(CKD) >90 (>60 ml/min/1.73 sqM); Potassium 4.5 mmol/L (3.5-5.1); Sodium 129 mmol/L (137-145)
== END | disposition home or self-care (01) ==
LOC: LABWHC1 11:38
PROVIDERS: ATTEND Family Medicine
DX: E87.1 Hypo-osmolality and hyponatremia (principal)
CPT/HCPCS: 36415; 80048

== ENCOUNTER 2023-03-15 08:52 | Day surgery (SDC) | payer BC ==
[2023-03-10 12:54] VITALS: BMI 27.4
[~2023-03-15 08:52] MED LIST: ACETAMINOPHEN TAB 500 MG TAB PO PRN; GABAPENTIN 300 MG CAP PO PRN; MIDAZOLAM 2 MG/2 ML VIAL IV PRN; ONDANSETRON 4 MG/2 ML VIAL IVP PRN; TRANEXAMIC 1,000 MG/100ML-NACL 1,000 MG in SALINE 1 100ML.BAG IVPB PRN
[2023-03-15] MEDS: LACTATED RINGERS 1,000 ML IV SCH ×2 (10:25→10:34)
[2023-03-15 10:28] LABS: Glucose,Whole Blood 78 mg/dL (70-110)
--- NOTE | 2023-03-15 10:37 | P.HPOR ---
History of Present Illness H&P Date: 03/15/23 Chief Complaint: Low back pain, RLE radiculopathy .D:Date: 01/13/23 : 11:32am .T:Title: [facility] Date of :[birth year] [id number]: NKDA Age: 52 year Height: 5'2" Weight: 140 lbs BMI: 25.61 kg/m2 Occupation: Cook/environmental aide VAS: 4 CHIEF COMPLAINT: Low back pain DOI: 12/12/2022 DOS: n/a Duration of current treatment regiment:n/a HISTORY : Xrays New xrays taken in office Trauma or injury No Work-Related No Pain description Burning, sharp, increasing . Location Posterior Patient notes that their pain radiates to bilateral lower extremities Activity Modification Yes Hand Dominance Left TREATMENTS COMPLETED: 6 weeks of PT completed? Month and Year of last PT date? No Physician directed home exercise completed? No Medications Yes; List: Neurontin, Flexeril, and Brooklyn Alternative interventions Chiropractic:No Massage therapy:No R.I.C.E:yes Brace:No Injections No RFA: No SUBJECTIVE: Ms. Phelan returns to the office today for a re-check on her low back pain. The patient notes continued pain throughout the low back, worse upon the right side, that radiates down into the bilateral lower extremities. The patient states that their lower extremity pain is associated with numbness and tingling through the L5-S1 dermatomal distribution. The patient states that the right lower extremity symptoms are more severe than the left at this time. The patient also reports continued burning pain persisting around the right buttock and sacrum with numbness. Overall the patient has seen a progressive increase in symptoms since their onset. Ms. Choi symptoms are exacerbated with any activity at this time, and due to this they note that it is increasingly difficult for her to complete many of their daily tasks. The patient is having severe sleep disturbances as well due to their ongoing pain and associated symptoms. Regarding treatments, the patient has trailed at home ice/heat therapies and medication management, which have provided her with no significant relief. For their symptoms, the patient has been taking Neurontin, Flexeril, and [place]. The patient states that her symptoms have started to significantly affect her overall quality of life so she would like to discuss and proceed with surgical intervention at this time. Otherwise the patient denies any f/c/sob/cp, no bladder or bowel retention/incontinence, no perineal numbness/tingling, and ambulates with a cane today. The patients' past social, medical, family, surgical history, as well as review of systems, have been reviewed. Please refer to the Neurosurgery History and Physical form that has been scanned in to our electronic medical record system. 14 points review of systems completed and as stated in HPI, all other systems reviewed are negative. Social History: Reviewed, see appropriate section of the chart for details. P3 Family History: Reviewed, see appropriate section of the chart for details. P2 Past Medical History: Reviewed, see appropriate section of the chart for details. [id number] Medications: Rx: atenoloL 25 mg tablet Ref: 0 Rx: Fosamax 70 mg tablet Ref: 0 Rx: IBU 800 mg tablet Ref: 0 Rx: predniSONE 10 mg tablet Ref: 0 P1 PHYSICAL EXAMINATION: General:Awake, alert, appropriate for age, in distress due to pain. HEENT:No unusual neck masses around region of lateral neck triangle, thyroid, supraclavicular groove Heart:Regular rate and rhythm, normal S1, S2 and no murmur/gallop. Lungs:Clear to auscultation bilaterally with no use of accessory muscles. Extremities: Skin warm and dry without acute lesions, coloration, temperature, skin intact, no tenderness or erythema Integument: Hairy patches:ABSENT Dorsal skin dimples:ABSENT Cafe au lait spots:ABSENT Surgical incisions:n/a Palpation: Please see Pain drawing on Intake sheet for further detail. Midline spinal tenderness:No E6 Cervical Tenderness: No E6 Paralumbar tenderness:No E6 Parathoracic tenderness:No E6 Buttocks tenderness:Yes, right E6 Sacroiliac Tenderness:Yes Laterality:Right POSTURAL and MUSCULO-SKELETAL EVALUATION: Coronal Balance:NEUTRAL Recumbent testing:Patient isable to lay flat on back Sagittal Balance:NEUTRAL Shoulder Profile:LEVEL Pelvic Girdle:LEVEL Neck ROM:UNRESTRICTED Lumbar ROM:RESTRICTED Shoulder ROM:Symmetrical Hip ROM:Symmetrical Knee ROM:Symmetrical Hands:Normal appearance, symmetrical Feet:Normal appearance, Symmetrical VASCULAR STATUS : LEFT RIGHT Wrist Pulses INTACT INTACT Pedal Pulses (Dors. pedis & post.tibialis) INTACT INTACT Color NORMAL NORMAL Edema Absent Absent NEUROLOGIC EXAMINATION: Mental Status:Awake and alert, fully oriented, with normal attention, concentration and memory, and fluent, appropriate speech. Cranial Nerves: I: Olfactory not tested. II: Visual acuity normal, no visual field deficit noted with confrontation. III,IV: Normal pupillary reflexes & intact extraocular movements without nystagmus. V,: Intact symmetrical facial sensation. VII: Intact symmetrical facial motor movement VIII: Hearing intact. IX,X: Intact gag, swallow, & normal voice. XI: Sternocleidomastoid, trapezius function intact. XII: Tongue midline with normal movements. L'hermitte's Sign: Negative / absent Spurling'Sign: Absent bilaterally. Cubital percussion test: Absent bilaterally. Balbuena-Tinel sign - Carpal region: Absent bilaterally. Straight Leg Raising: PASCUAL due to pain Crossed straight leg raise: PASCUAL due to pain MOTOR EXAM (0-5/5, N/T Muscle appearance: Symmetrical, without signs of atrophy or dystrophy UPPER EXTREMITY RIGHT LEFT Shoulder Abduction 5/5 5/5 Biceps 5/5 5/5 Triceps 5/5 5/5 Wrist Extension 5/5 5/5 Hand Intrinsic 5/5 5/5 Briquette Operator 5/5 5/5 Hand and finger dexterity intact bilaterally? yes Disdiadochokinesis examination negative bilaterally? yes LOWER EXTREMITY RIGHT LEFT Hip Flexion 4+/5 4+/5 Knee Extension 4+/5 4+/5 Knee Flexion 4+/5 4+/5 Dorsiflexion 4+/5 4+/5 Plantarflexion 4+/5 4+/5 EHL 4+/5 4+/5 FHL 4+/5 4+/5 Toe heel walk / heel-toe walk intact while maintaining satisfactory balance? No Squatting/straightening w/o assistance to a min of 60 degree knee flexion? No Single leg stance: PASCUAL REFLEXES(0-4/2, NT)Upper ExtremityLower Extremity Right 2 2 Left 2 2 Pathological Reflexes RIGHT LEFT Balbuena's Absent Absent Clonus Absent Absent Babinski Absent Absent Sensory system (0-4, N/T) Test type RU SABINE RL LL Joint-Position 2 2 2 2 Vibration 2 2 2 2 Pain & LT sense 2 2 2 2 Dermatomal Deficit: None None L5-S11 None Gait and Functional Evaluation: Ambulatory aids:Wheelchair Romberg's test:Intact bilaterally RADIOGRAPHS: XRay Lumbar AP/lateral 2 views with AP pelvis; 3 viewstaken at [facility] [place] on 12/28/22: Reviewed with the patient in office today. Severe spondylitic changes L5-S1 with flattening of the normal lordosis. Complete disc collapse at L5-S1 with foraminal stenosis. Vertebral body heights are preserved. No acute osseous abnormalities. Pelvis: The visualized sacrum and iliac wings are within normal limits. ASSESSMENT: 1. Grade I spondylolisthesis of L5 on S1 2. L5-S1 spondylosis with stenosis 3. Lower extremity radiculopathy 4. Lower extremity weakness PLAN: Based on my findings I suggest the following course of action: -I discussed treatment options with the patient, including operative and non- operative options, and they have elected to proceed with the following surgical procedure: Right-sided L5-S1 minimally invasive transforaminal lumbar interbody fusion The indications, risks, benefits, and alternatives to surgery were discussed with the patient and family at length. Specifically (but not limited to) the risks of infection, stiffness, recurrence of symptoms, need for revision surgery, local numbness, neurovascular injury, and blood clots were discussed. The patient's questions were answered. - I discussed with the patient that she will need to remain off work approximately 3 months post operation. -A prescription was sen to the patient's pharmacy for [place] 7.5 mg. - Ambulate daily - Take medications as directed - Ice and rest for pain and swelling control. Spine Surgery Risk Review Ms. Phelan is presenting for evaluation of low back pain. It was my pleasure to have seen and examined Ms. Phelan. In our visit today we have had a chance to go over subjective complaints, physical examination findings and treatments including the natural course history without intervention and various interventional options. The patients imaging demonstrates: XRay Lumbar AP/lateral 2 views with AP pelvis; 3 viewstaken at [facility] [place] on 12/28/22: Reviewed with the patient in office today. Severe spondylitic changes L5-S1 with flattening of the normal lordosis. Complete disc collapse at L5-S1 with foraminal stenosis. Vertebral body heights are preserved. No acute osseous abnormalities. Pelvis: The visualized sacrum and iliac wings are within normal limits. On physical exam, Ms. Phelan demonstrates: continued pain throughout the low back, worse upon the right side, that radiates down into the bilateral lower extremities. The patient states that their lower extremity pain is associated with numbness and tingling through the L5-S1 dermatomal distribution. The patient states that the right lower extremity symptoms are more severe than the left at this time. The patient also reports continued burning pain persisting around the right buttock and sacrum with numbness. Overall the patient has seen a progressive increase in symptoms since their onset. Ms. Phelan'rashid symptoms are exacerbated with any activity at this time, and due to this they note that it is increasingly difficult for her to complete many of their daily tasks. The patient is having severe sleep disturbances as well due to their ongoing pain and associated symptoms. The patient states that her symptoms have started to significantly affect her overall quality of life. I have explained to the patient that as their condition progresses it will cause further neurological deficits and eventual paralysis. Based on the patients imaging, physical exam, and the rapid progression and disabling nature of their symptoms, at this time I recommend surgery in the form of a: Right-sided L5-S1 MIS TLIF. I discussed the risk and benefits of this procedure at length with Ms. Phelan. The patient agreed to considered pursuing the procedure above mentioned . Prior to surgery, she should follow up with her PCP (Cardio, ID, IM etc) for clearance. Questions were invited and answered, and the patient wishes to proceed as outlined below. Currently, I am recommendin. Right-sided L5-S1 MIS TLIF 2.Follow up with PCP for surgical clearance 3.Review of surgical risks and benefits as well as an educational packet on the proposed surgical procedure. Risks: All surgical procedures come with inherent risks, including those related to positioning, anesthesia, intraoperative findings, and postoperative complications. It is important to understand that surgery does not come with any guarantee of a successful outcome as complications and adverse events are always possible. The patient was given a handout in office today discussing the surgical procedure and risks associated with the intervention, both of which were discussed with the patient. These risks include but are not limited to the following: * Experiencing same, different or even worse symptoms in back, neck, arms, or legs compared to before surgery. Requiring further surgery or other forms of treatment presently or at some time in the future at same or other levels of the intended spine surgery. On an extreme but fortunately relatively rare basis severe complication such as blindness, stroke, heart attack, temporary and/or permanent nerve injury, paralysis, coma, or may occur, sometimes without known explan ation. Surgical complications may include but are not limited to risk of infection, fluid accumulation in the surgical dissection site, including a seroma or hematoma, that requires additional surgery, wound drainage, bleeding, new numbness or weakness, vision changes/loss, spinal fluid leakage, non-healing and/or infected incision, headaches, difficulty or inability to swallow, hoarseness, hemopneumothorax, pneumothorax, impotence, retrograde ejaculation, vaginal dryness; injury to nerves, spinal cord, blood vessels, lymphatics or other vital organs (i.e., bowel injury, injury to the great vessels); heterotopic bone formation; complications related to the hardware such as screws, rods, cages including misplaced hardware, device failure, instrumentation at the wrong spine level, hardware fracture/breakage, or hardware loosening; vertebral failure of the spinal column above or below the newly placed hardware; retained surgical instrumentations or devices and the need for further surgery. * Medical risks of the planned spine surgery include but are not limited to generalized Infections to the whole body or local areas outside of the surgical site (sepsis), heart attack, bleeding, anaphylaxis, meningitis, seizure, epilepsy, hearing loss, burn huffman, laceration of the head or other areas of the body, bruising, hypersensitivity of the skin, bladder over distension; allergic reaction; shoulder injury related to positioning; fat, blood and air clots to other areas of the body like heart, lungs, brain; failure of internal organs such as lungs, kidneys, liver and excessive bleeding. If blood transfusions are necessary, note that transfusions may cause intolerance reactions such as anaphylaxis or other complex reactions. Despite best efforts, the results of spine surgery might not heal in terms of bone, soft tissues such as skin, fascia, ligaments, and joints. Additionally, in order to achieve best possible results, spine surgery may be carried out beyond the initially planned levels and involve decompression, fusion including insertion of hardware at levels other than the original intended area of surgical interest change some portions of the procedure in order to ensure the best possible outcomes. With spine surgery and spinal fusion, there are different off label uses of instrumentation (devices, implants and hardware) as well as biological substa nces (bone morphogenic proteins, demineralized bone matrix) as well as using extra bone from allograft sources (i.e. cadaver bone) or autograft (iliac crest bone, ribs, or the spine itself). The patient has been given information about these practices and their inherent risks and benefits. [facility] is an educational center that serves as a training facility for neurosurgical and orthopedic RAG BALER and Nursing students. Physician assistants are medically trained surgical providers who function in the outpatient, inpatient, and operating room setting under the direct supervision of the attending surgeon. [facility] has multiple operating rooms with single and overlapping rooms running daily. They currently function under the required guidelines as produced by the [facility] [employer] Committee with regards to the overlapping rooms and will continue to comply with changes to this policy as they occur. The requirements include and are complied with as follows: (1) the critical portions of the overlapping rooms will not occur at the same time, (2) the attending physician will be physically present during the critical portions of the procedure and immediately available during the entire case, and (3) a back-up attending is designated should the primary attending not be immediately available. The patient has had a chance to review all the listed information, has been given print outs detailing this information, and has had all his/her questions answered to their satisfaction. It was my pleasure to have seen and examined Ms. Phelan. In our visit today we have had a chance to go over my understanding of our patient's current condition, the natural course history without intervention and various interventional options. Questions were invited and answered, and the patient wishes to proceed as outlined above. I have seen and examined the patient for 25 minutes and we have spent more than 50% of the time in repeat and detailed counseling about the patient's condition, its natural course history with out and as much as can be predicted with surgery and re-review of various surgical treatment options. In conclusion, Ms. Phelan requested we proceed with the above suggested surgery and are willing to accept risks and limitations of the suggested surgery as nature of the disease process and our best attempts at treatment for the condition. Thank you again for allowing us to be part of your patient's care. Please don't hesitate to contact me if you have any further questions. Follow-up: Preoperative Appointment Patient Education: (Informational booklet, instructions, etc) given at today's appointment: Yes .ED:Patient Education: Y Medications Reviewed: YES In our visit today Ms. Phelan and I have had a chance to go over my understanding of the patient's current condition, the natural course history without intervention and various interventional options. Questions were invited and answered, and the patient wishes to proceed as outlined above. I will be sure to keep you updated afterMsDae Phelan returns here for further follow-up. Thank you again for your referral. Please do not hesitate to contact me if you have any further questions. Signed and authenticated by: Sanjay Babb [facility] [address] [facility], [address] [address] This message is confidential, intended only for the named recipient(s) and may contain information that is privileged or exempt from disclosure under ap plicable law. If you are not the intended recipient(s), you are notified that the dissemination, distribution or copying of this information is strictly prohibited. If you received this message in error, please notify the sender then delete this message. Patient verbalizes understanding of the information discussed. The above note was initiated by Zoraida Buckley, physician recording licensed physical therapy assistant for Dr. Sanjay Keith. This note has been reviewed by Dr. Keith, who has made his personal changes and impressions for this document. CC: Joselo Scott D.O. Rx: HYDROcodone 7.5 mg-acetaminophen 325 mg tablet, 42, Ref: 0, take 1 tablet by oral route every 6 hours as needed for pain # SIGNED BY Sanjay Keith (GOO)01/21/2023 08:34PM Past Medical History Past Medical History: Asthma Additional Past Medical History / Comment(s): lupus, Back pain History of Any Multi-Drug Resistant Organisms: None Reported Past Surgical History: Section Additional Past Surgical History / Comment(s): PAIN CLINIC PROCEDURE Past Anesthesia/Blood Transfusion Reactions: No Reported Reaction Smoking Status: Never smoker - Past Family History Mother Family Medical History: Cancer Medications and Allergies Home Medications Medication Instructions Recorded Confirmed Type Alendronate Sodium [Fosamax] 70 mg PO ABBASI 12/28/22 03/15/23 History atenoloL 25 mg PO AC-BID 12/28/22 03/15/23 History predniSONE 10 mg PO AC-SUPPER 12/28/22 03/15/23 History Sennosides/Docusate Sodium [Senna 1 each PO DAILY #20 capsule 12/31/22 03/15/23 Rx Plus 8.6-50 mg Softgel] HYDROcodone/APAP 7.5-325MG [Bro[place] 1 tab PO Q6HR PRN #18 tab 01/12/23 03/15/23 Rx 7.5-325] Cyclobenzaprine [Flexeril] 10 mg PO TID PRN 30 Days #90 tab 03/03/23 03/15/23 Rx Gabapentin 300 mg PO TID 30 Days #90 cap 03/03/23 03/15/23 Rx Albuterol Inhaler [Ventolin Hfa 1 - 2 puff INHALATION Q6H PRN 03/10/23 03/15/23 History Inhaler] Allergies Allergy/AdvReac Type Severity Reaction Status Date / Time Latex, Natural Rubber Allergy Rash/Hives Verified 03/15/23 09:28 Penicillins Allergy Anaphylaxis Verified 03/15/23 09:28 Physical Examination Osteopathic Statement: *. No significant issues noted on an osteopathic structural exam other than those noted in the History and Physical/Consult.
[2023-03-15] MEDS ORDERED: fentaNYL (PF) 50 MCG/ML 2 ML AMP ONE (11:26)
[2023-03-15] MEDS ORDERED: SUCCINYLCHOLINE CHLORIDE 200 MG/10 ML VIAL IV ONE (11:26)
[2023-03-15] MEDS ORDERED: LIDOCAINE 2% INJ 20 MG/ML (2 ML VIAL) ONE (11:26)
[2023-03-15] MEDS ORDERED: TRANEXAMIC 1,000 MG/100ML-NACL PREMIX BAG ONE (11:26)
[2023-03-15] MEDS ORDERED: KETAMINE 10 MG/ML 20 ML VIAL ONE (11:26)
[2023-03-15] MEDS ORDERED: PHENYLEPHRINE 10 MG/ML VIAL ONE (11:26)
[2023-03-15] MEDS ORDERED: PROPOFOL 10 MG/ML 20 ML VIAL IV ONE (11:26)
[2023-03-15] MEDS ORDERED: MIDAZOLAM 2 MG/2 ML VIAL ONE (11:26)
[2023-03-15] MEDS ORDERED: THROMBIN (BOVINE) 5,000 UNIT VIAL TOPICAL ONE (11:58)
[2023-03-15] MEDS ORDERED: GELATIN SPONGE,ABSORB (LARGE) 1 EACH SPONGE TOPICAL ONE (13:14)
[2023-03-15] MEDS ORDERED: VANCOMYCIN 1,000 MG VIAL MISCELLANE ONE (13:39)
[2023-03-15] MEDS ORDERED: HYDROcodone/APAP 10-325MG 1 EACH TAB PO PRN (14:02)
[2023-03-15] MEDS ORDERED: ONDANSETRON 4 MG/2 ML VIAL IVP PRN (14:02)
[2023-03-15] MEDS ORDERED: HYDROmorphone 0.5 MG/0.5 ML SYRINGE IVP PRN (14:02)
[2023-03-15] MEDS ORDERED: HYDROmorphone 1 MG/ML 1 ML SYRINGE IVP PRN (14:02)
[2023-03-15] MEDS ORDERED: MAGNESIUM HYDROXIDE 2,400 MG/30 ML CUP PO PRN (14:02)
[2023-03-15] MEDS ORDERED: SENNOSIDES-DOCUSATE SODIUM 1 EACH TAB PO PRN (14:02)
--- NOTE | 2023-03-15 14:06 | P.OP ---
Date of Procedure: 03/15/23 Preoperative Diagnosis: 1. L5-S1 SPONDYLOSIS SEVERE 2. FORAMINAL STENOSIS L5-S1 3. LOW BACK PAIN 4. LOWER EXTREMITY RADICULOPATHY Postoperative Diagnosis: 1. L5-S1 SPONDYLOSIS SEVERE 2. FORAMINAL STENOSIS L5-S1 3. LOW BACK PAIN 4. LOWER EXTREMITY RADICULOPATHY Procedure(s) Performed: 1. L5-S1 POSTERIOLATERAL AND INTERBODY FUSION (90588) 2. L5-S1 INSTRUMENTATION (64108) 3. L5-S1 LAMINOFORAMINOTOMY AND DECOMPRESSION (85687) 4. INSERTION OF BIOMECHANICAL DEVICE (82205) 5. USE OF [employer] NAVIGATION (81402) USE OF IONM Implants: -MCKAYLA EVEREST SCREW AND RAÚL SYSTEM MT -GLOBUS SABLE CAGE 6-12 MM 10 MM MEDIUM -MAGNATOS, IFACTOR, ALLOCELL, ARTHROCELL, AUTOGRAFT Anesthesia: HENOK Surgeon: Sanjay Keith Anesthesiologist Assistant Certified #1: Joe Gill (IDALMIS Guerra Was present and assisted with all aspects of the case from positioning to dressing placement) Estimated Blood Loss (ml): 75 IV fluids (ml): 1,100 Urine output (ml): 0 Pathology: none sent Condition: stable Disposition: PACU Indications for Procedure: Ms. Phelan is presenting for evaluation of low back pain. It was my pleasure to have seen and examined Ms. Phelan. In our visit today we have had a chance to go over subjective complaints, physical examination findings and treatments including the natural course history without intervention and various interventional options. The patients imaging demonstrates: XRay Lumbar AP/lateral 2 views with AP pelvis; 3 [facility]aken at [facility] on 12/28/22: Reviewed with the patient in office today. Severe spondylitic changes L5-S1 with flattening of the normal lordosis. Complete disc collapse at L5-S1 with foraminal stenosis. Vertebral body heights are preserved. No acute osseous abnormalities. Pelvis: The visualized sacrum and iliac wings are within normal limits. On physical exam, Ms. Phelan demonstrates: continued pain throughout the low back, worse upon the right side, that radiates down into the bilateral lower extremities. The patient states that their lower extremity pain is associated with numbness and tingling through the L5-S1 dermatomal distribution. The patient states that the right lower extremity symptoms are more severe than the left at this time. The patient also reports continued burning pain persisting around the right buttock and sacrum with numbness. Overall the patient has seen a progressive increase in symptoms since their onset. Ms. Phelan's symptoms are exacerbated with any activity at this time, and due to this they note that it is increasingly difficult for her to complete many of their daily tasks. The patient is having severe sleep disturbances as well due to their ongoing pain and associated symptoms. The patient states that her symptoms have started to significantly affect her overall quality of life. I have explained to the patient that as their condition progresses it will cause further neurological deficits and eventual paralysis. Based on the patients imaging, physical exam, and the rapid progression and disabling nature of their symptoms, at this time I recommend surgery in the form of a: Right-sided L5-S1 MIS TLIF. I discussed the risk and benefits of this procedure at length with Ms. Phelan. The patient agreed to considered pursuing the procedure above mentioned . Prior to surgery, she should follow up with her PCP (Cardio, ID, IM etc) for clearance. Questions were invited and answered, and the patient wishes to pro ceed as outlined below. Currently, I am recommendin. Right-sided L5-S1 MIS TLIF Description of Procedure: L5-S1 MIS TLIF JOSÉ MIGUEL The patient was seen and examined in the preoperative area. All preoperative protocols were followed. Informed consent was obtained risks and benefits of the procedure were discussed at length. Risks including bleeding infection damage to the surrounding tissue and risk of reoperation were discussed with the patient. Risk of anesthesia up to and including was a discussed with the patient. These are outlined in the risk review. They were willing to accept these risks and all the risks of surgery. The patient was given a weight-based dose of antibiotics in the form of 2 g Ancef. The patient was seen and evaluated by the anesthesia team who deemed them fit for surgery. The site was marked, the patient was willing to proceed with the procedure. The patient was transferred to the operative suite by the Department of anesthesia. They were then drifted off to sleep by the department anesthesia and GETA was performed. The patient tolerated this well. Meyers catheter was placed by nursing staff, a-traumatically. Once confirmation of lines and ventilation the patient was transferred to a prone Minesh table very carefully. All bony prominences including wrists, elbows, axilla, chest, hips, and thighs, and feet were padded very well. Special attention was paid to the genitalia, and these were padded accordingly. SCDs were placed on bilateral lower extremities and were connected. Arms were well padded and placed on arm boards up and out in the 90/90 position. Once in position, again we confirmed good ventilation capabilities and that lines were running appropriately. The patients Lumbar spine was then exposed. 1010s were placed outlining the incision site. Standard alcohol was used to clean the incision site and allowed to dry. C-arm was used to needle localize the pedicles at L5-S1 and bio-lynda the patient and confirm level for incision which was marked with a skin marker. Operative briefing was performed with all teams and everyone in agreement to proceed. The patient was then prepped and draped in a normal sterile fashion. Timeout was then performed, and all parties agreed with the procedure to be performed. Skin nicks were made over the PSIS on the right side and pins placed for the [employer]low Navigation tracker. This was secured and then a 3D Zhiem spin was registered. Once registered it was tested and confirmed to be accurate. We then targeted pedicles b/l at L5 and S1 using navigated Jamshidi and drill guide. Wires were then placed in their void and confirmed to be in good position on AP and Lateral. Contralateral right side screws were then placed over wires and tested and they all tested above 20 mA. Attention was then turned to interbody fusion at L5-S1. Tubular retractor system was placed at the interspace of L5-S1 using biplanar c arm. Once in position and dilated up to 26mm tube it was locked to the bed and confirmed in good position. Microscope was then brought in for visualization. Limited myomectomy was performed and laminectomy, complete facetectomy and foraminotomy performed at L5-S1 using high speed radha and Kerrison rongure. The ligamentum was removed and dural sac decompressed. Exiting and traversing roots visualized and decompressed. Neural elements were then protected, and disc space accessed with an osteotome. Sequential shaving then done under lateral imaging and complete discectomy performed using lokesh, pituitary and curette. Once good bleeding endplates accomplished and good height alevism with trials, a combination of autograft, allograft and synthetic placed anterior in the disc space. The cage was then selected and impacted into place under lateral imaging. The cage was then expanded restoring height, lordosis and alignment. The cage was backfilled with bone graft through a funnel. The tripper removed and area inspected. Good cage placement, stable cage and no injuries. Area was irrigated copiously, and meticulous hemostasis achieved. The tubular retractor was then removed under direct visualization. Screws were then selected and placed over the previously placed wires on the ipsilateral side. This was done in the fashion described above. Screws were then tested, and all tested above 20 mA. Shells were then placed on the tabs. Raúl length was then measured, and rods selected. They were then placed through the MIS tabs, subfascial. These were then locked into place with set screws and final tightened. Raúl holders removed and images taken showing good placement of rods good lordosis and alevism of height. Tabs were broken off. Wounds were then copiously irrigated with NSS. [place] used for TP decortication and mixture of MagnatOs, allograft and autograft packed posterolateral. Facia was then closed with 0 Vircyl. Deep subq closed with 0 Vicryl. Superficial subq closed with 2-0 Vicryl and skin with vladimir. Wound edges approximated very well. Wound was then cleaned with alcohol and dried. Wounds dressed in Optifoam dressings. The patient was then transferred off the table back to their hospital bed a- traumatically. They were extubated by the department of anesthesia. They were then transferred to PACU in stable condition having tolerated the procedure with no complications.
[2023-03-15] MEDS: HYDROmorphone 0.5 MG/0.5 ML SYRINGE IVP PRN ×3 (14:22→15:20)
[2023-03-15] MEDS ORDERED: LABETALOL 5 MG/ML VIAL MDV IV ONE ×2 (14:51→15:07)
[2023-03-15] MEDS ORDERED: hydrALAZINE HCL 20 MG/ML 1 ML VIAL IV ONE (15:28)
[2023-03-15] MEDS: CYCLOBENZAPRINE 10 MG TAB PO PRN (16:52)
[2023-03-15] MEDS: GABAPENTIN 300 MG CAP PO SCH ×2 (16:53→21:48)
--- NOTE | 2023-03-15 17:53 | FL ---
Intraoperative/procedural fluoroscopic services were provided. Total fluoroscopy time is 90 seconds w ith a total of 6 submitted images to PACS. Please see the operative/procedural note for further detai ls. DAP: 18.959 mGym2
[2023-03-15] MEDS: ACETAMINOPHEN TAB 325 MG TAB PO SCH (19:20)
[2023-03-15] MEDS: HYDROcodone/APAP 7.5-325MG 1 EACH TAB PO PRN (19:21)
[2023-03-16] MEDS: ACETAMINOPHEN TAB 325 MG TAB PO SCH ×3 (00:15→12:08)
[2023-03-16] MEDS: CYCLOBENZAPRINE 10 MG TAB PO PRN ×2 (00:26→12:06)
--- NOTE | 2023-03-16 08:11 | CT ---
EXAMINATION TYPE: CT lumbar spine wo con DATE OF EXAM: 03/15/2023 COMPARISON: Fluoroscopy films dated 09/03/2022 HISTORY: s/p L5-S1 TLIF CT DLP: 980.3 mGycm CONTRAST: None TECHNIQUE: CT of the lumbar spine is performed on a spiral scan at 3 mm thick sections. Reconstructed images are performed in the coronal and sagittal planes. FINDINGS: T12-L1: No focal disc herniation or significant disc bulge is evident. No spinal canal stenosis or neural foraminal stenosis is present. L1-L2: No focal disc herniation or significant disc bulge is evident. No spinal canal stenosis or n eural foraminal stenosis is present L2-L3: No focal disc herniation or significant disc bulge is evident. No spinal canal stenosis or n eural foraminal stenosis is present L3-L4: No focal disc herniation or significant disc bulge is evident. No spinal canal stenosis or n eural foraminal stenosis is present L4-L5: No focal disc herniation or significant disc bulge is evident. No spinal canal stenosis or n eural foraminal stenosis is present L5-S1: There is interval placement of a disc spacer at L5-S1. Pedicle screws are present L5-S1 fixati on rods. No spinal canal stenosis is evident. Moderate neural foraminal narrowing, worse on the left is present. Vertebral alignment appears normal. Postsurgical changes are within subcutaneous tissue. Surgical ski n vladimir are present. IMPRESSION: 1. Status post lumbar and disc space surgery L5-S1.
[2023-03-16] MEDS ORDERED: atenoloL 25 MG TAB PO SCH (08:45)
[2023-03-16] MEDS: GABAPENTIN 300 MG CAP PO SCH (08:47)
--- NOTE | 2023-03-16 09:11 | P.PN ---
Subjective Progress Note Date: 03/16/23 Principal diagnosis: 1. Grade I spondylolisthesis of L5 on S1 2. L5-S1 spondylosis with stenosis 3. Lower extremity radiculopathy 4. Lower extremity weakness Patient seen and examined this morning. Patient is sitting upright in bed eating breakfast. Patient reports that her pain is managed on current regimen. She states she notices improvement in her bilateral lower extremities since the procedure, decrease in numbness and tingling. Surgical dressing to the lumbar spine has a small amount of shadowing present, dressing will be changed this afternoon. Patient states she is looking forward to working with physical therapy today. Possible discharge later today versus tomorrow. Patient denies fevers/chills, nausea/vomiting, or chest pain. Objective - Vital Signs Vital signs: Vital Signs Temp 98.8 F 03/16/23 06:49 Pulse 103 H 03/16/23 06:49 Resp 16 03/16/23 06:49 BP 126/67 03/16/23 06:49 Pulse Ox 95 03/16/23 06:49 FiO2 Intake & Output 03/15/23 03/16/23 03/16/23 18:59 06:59 18:59 Intake Total 2180 Output Total 75 Balance 210 Weight 67.6 kg Intake: IV 2049 Intake, IV Titration 130 Amount Lactated Ringers 1,000 ml 80 @ 20 mls/hr IV .Q24H [facility] Rx#:[id number] ceFAZolin 2 gm In Sodium 50 Chloride 0.9% 50 ml @ 100 mls/hr IVPB Q8HR [facility] Rx# :[id number] Output: Estimated Blood Loss 75 Other: # Voids 3 - Exam Physical Examination General: The patient is awake and alert, in no acute distress Skin: Skin is warm and dry with no obvious rashes or lesions. Surgical incisions to the lumbar spine, dressing has small amount of shadowing. Eye: Pupils are equal, round and reactive to light, extra-ocular movements are intact; there is normal conjunctiva bilaterally. Neck: The neck is supple, there is no tenderness and ROM intact. Cardiovascular: There is a regular rate and rhythm. No murmur, rub or gallop is appreciated. Respiratory: Lungs are clear to auscultation, respirations are non-labored, breath sounds are equal. Gastrointestinal: Soft, non-distended, non-tender abdomen. Back: There is no tenderness to palpation in the midline, paralumbar, parathoracic or buttocks region. There is no obvious deformity . Musculoskeletal: ROM limited secondary to pain and stiffness from surgical procedure. Muscle strength in all major muscle groups of bilateral upper extremities 5/5, bilateral lower extremities 4/5. Neurological: CN 2-12 intact. There are no obvious motor or sensory deficits. Movement and coordination equal and intact. Sensory exam to light touch intact C5-T1 and intact from L2-S1. Reflexes 2/4 in bilateral upper and lower extremities. Negative Hoffmans, babinski, and clonus signs. Psychiatric: Cooperative, appropriate mood & affect, normal judgment. Assessment and Plan Assessment: Postop day 1: Minimally invasive TLIF L5-S1 1. Grade I spondylolisthesis of L5 on S1 2. L5-S1 spondylosis with stenosis 3. Lower extremity radiculopathy 4. Lower extremity weakness Plan: -Appreciate telesales consultant and team management. -Activity: Ambulate QID, OOB all meals, up and about, limit lifting bending twisting to less than 5 lbs. Use walker or cane if needed for stability. -Daily PT/OT, increase ambulation strength and balance. -Pain control: Adequate at this time -Meds: reviewed -GI ppx: senna, Miralax -DVT PPX: OK to restart Heparin tonight -Hygiene: Shower today. Maintain dressing clean and dry. Meticulous cleaning after BMs away from the incision site -Encourage IS 10x/hr -Dispo: Anticipate discharge home later today vs tomorrow with homecare *I reviewed and discussed this case with my attending Dr. Keith, whom has reviewed this chart and films and is in agreement with assessment and plan of care as outlined above. I have personally seen and examined the patient, performed the documentation and the assessment and plan as written. Number of minutes spent on the visit: 20m.
[2023-03-16] MEDS ORDERED: ALBUTEROL NEBULIZED 2.5 MG/3 ML INHALATION PRN (09:54)
[2023-03-16 11:53] LABS: Basophils # (A) 0.04 X 10*3/uL (0.00-0.10); Basophils % (A) 0.5 %; Eosinophils # (A) 0.15 X 10*3/uL (0.04-0.35); HCT 31.1 % (37.2-46.3); HGB 9.9 d/dL (12.0-15.0); Lymphocytes % (A) 20.3 %; MCH 31.3 pg (27.0-32.0); MCHC 31.8 d/dL (32.0-37.0); MCV 98.4 FL (80.0-97.0); Mean Platelet Volume 9.5 FL (9.5-12.2); Monocytes # (A) 0.75 X 10*3/uL (0.20-1.00); Monocytes % (A) 10.1 %; NRBC Per 100 WBC 0 X 10*3/uL (0.00-0.01); Neutrophils # (A) 4.93 X 10*3/uL (1.80-7.70); Neutrophils % (A) 66.7 %; Platelet Count 316 X 10*3/uL (140-440); RBC 3.16 X 10*6/uL (4.10-5.20); RDW 12.2 % (11.5-14.5)
[2023-03-16] MEDS: HYDROcodone/APAP 7.5-325MG 1 EACH TAB PO PRN (12:06)
[2023-03-16 12:10] LABS: BUN/Creat Ratio 10.71 Ratio (12.00-20.00); Blood Urea Nitrogen 7.5 mg/dL (9.0-27.0); Calcium 8.6 mg/dL (8.7-10.3); Carbon Dioxide 24.5 mmol/L (21.6-31.8); Chloride 93 mmol/L (96-109); Glucose 90 mg/dL (70-110); Sodium 128 mmol/L (135-145)
--- NOTE | 2023-03-16 12:37 | P.CONS ---
History of Present Illness - Reason for Consult Consult date: 03/16/23 - History of Present Illness This is a 52-year-old female with medical history of asthma, lupus, chronic back pain and former smoker. Patient is evaluated by postoperative day #1 L5 through S1 lamina foraminotomy and decompression and interbody fusion. She is admitted to orthopedics has requested medical consultation. Postoperatively patient is afebrile, blood pressure is relatively controlled today is 126/67 patient is maintained on room air heart rate is mildly elevated at 103. Noted to be sinus tachycardia. We will resume patient's albuterol inhaler for her asthma, patient has been resumed on her atenolol and will receive this morning 25 mg twice a day. Pain management in place with IV Dilaudid and oral Merrill. Patient is also resumed on her home dose of gabapentin 300 mg 2 times a day and Flexeril. Sheela pena is receiving perioperative antibiotics of IV cefazolin every 8 hours. Labs are ordered for today and pending at this time. REVIEW OF SYSTEMS: CONSTITUTIONAL: No fever, no malaise, no fatigue. HEENT: No recent visual problems or hearing problems. Denied any sore throat. CARDIOVASCULAR: No chest pain, orthopnea, PND, no palpitations, no syncope. PULMONARY: No shortness of breath, no cough, no hemoptysis. GASTROINTESTINAL: No diarrhea, no nausea, no vomiting, no abdominal pain. NEUROLOGICAL: No headaches, no weakness, no numbness. HEMATOLOGICAL: Denies any bleeding or petechiae. GENITOURINARY: Denies any burning micturition, frequency, or urgency. MUSCULOSKELETAL/RHEUMATOLOGICAL: Denies any joint pain, swelling, or any muscle pain. ENDOCRINE: Denies any polyuria or polydipsia. The rest of the 14-point review of systems is negative. PHYSICAL EXAMINATION: GENERAL: The patient is alert and oriented x3, not in any acute distress. Well developed, well nourished. HEENT: Pupils are round and equally reacting to light. EOMI. No scleral icterus. No conjunctival pallor. Normocephalic, atraumatic. No pharyngeal erythema. No thyromegaly. CARDIOVASCULAR: S1 and S2 present. No murmurs, rubs, or gallops. PULMONARY: Chest is clear to auscultation, no wheezing or crackles. ABDOMEN: Soft, nontender, nondistended, normoactive bowel sounds. No palpable organomegaly. MUSCULOSKELETAL: No joint swelling or deformity. EXTREMITIES: No cyanosis, clubbing, or pedal edema. NEUROLOGICAL: Gross neurological examination did not reveal any focal deficits. SKIN: No rashes. Assessment Postoperative day #1 L5 through S1 spinal decompression and fusion Hypertension patient is resumed on home dose of atenolol History of asthma with no acute exacerbation patient is resumed on her home albuterol inhaler as needed Hyponatremia appears chronic unclear etiology History of lupus History of chronic back pain Former Smoker GI prophylaxis DVT prophylaxis as per primary Full code Plan Resume appropriate home medications Continue with pain management and bowel regimen Recommend to repeat a BMP on discharge follow up hyponatremia and recommend to see nephrology on discharge as well for the low sodium Continue to use incentive spirometer 10 x an hour while awake and increase activity Medically patient is doing well and may be discharged home if cleared by primary service. Thank you for this consultation The impression and plan of care has been dictated by Fern Becerril Nurse Practitioner as directed. Dr. Sena MD I have performed a history and physical examination and medical decision making of this patient, discussed the same with the dictator, and agree with the dictators assessment and plan as written, documented as a scribe. Based on total visit time, I have performed more than 50% of this visit. Past Medical History Past Medical History: Asthma Additional Past Medical History / Comment(s): lupus, Back pain History of Any Multi-Drug Resistant Organisms: None Reported Past Surgical History: Section Additional Past Surgical History / Comment(s): PAIN CLINIC PROCEDURE Past Anesthesia/Blood Transfusion Reactions: No Reported Reaction Past Psychological History: No Psychological Hx Reported Smoking Status: Never smoker Past Alcohol Use History: Occasional Additional Past Alcohol Use History / Comment(s): QUIT SMOKING 2021 Past Drug Use History: None Reported - Past Family History Mother Family Medical History: Cancer Medications and Allergies Home Medications Medication Instructions Recorded Confirmed Type Alendronate Sodium [Fosamax] 70 mg PO ABBASI 12/28/22 03/15/23 History atenoloL 25 mg PO AC-BID 12/28/22 03/15/23 History predniSONE 10 mg PO AC-SUPPER 12/28/22 03/15/23 History Sennosides/Docusate Sodium [Senna 1 each PO DAILY #20 capsule 12/31/22 03/15/23 Rx Plus 8.6-50 mg Softgel] HYDROcodone/APAP 7.5-325MG [Merrill 1 tab PO Q6HR PRN #18 tab 01/12/23 03/15/23 Rx 7.5-325] Cyclobenzaprine [Flexeril] 10 mg PO TID PRN 30 Days #90 tab 03/03/23 03/15/23 Rx Gabapentin 300 mg PO TID 30 Days #90 cap 03/03/23 03/15/23 Rx Albuterol Inhaler [Ventolin Hfa 1 - 2 puff INHALATION Q6H PRN 03/10/23 03/15/23 History Inhaler] Allergies Allergy/AdvReac Type Severity Reaction Status Date / Time Latex, Natural Rubber Allergy Rash/Hives Verified 03/15/23 09:28 Penicillins Allergy Anaphylaxis Verified 03/15/23 09:28 Physical Exam Vitals: Vital Signs Temp Pulse Resp BP Pulse Ox 03/16/23 06:49 98.8 F 103 H 16 126/67 95 03/16/23 02:00 97.4 F L 97 17 149/92 94 L 03/15/23 20:00 98.1 F 109 H 16 137/72 96 03/15/23 16:02 90 20 148/100 98 03/15/23 15:43 83 10 L 168/73 100 03/15/23 15:35 185/79 03/15/23 15:30 78 16 203/83 98 03/15/23 15:15 80 16 193/97 97 03/15/23 15:00 80 16 213/91 97 03/15/23 14:45 78 16 193/91 100 03/15/23 14:30 82 16 187/87 100 03/15/23 14:15 78 16 186/89 100 03/15/23 14:09 96.8 F L 74 16 191/100 100 03/15/23 10:24 97.6 F 82 20 171/86 97 Intake and Output 03/15/23 03/16/23 03/16/23 22:59 06:59 14:59 Intake Total 130 Balance 130 Intake: Intake, IV Titration 130 Amount Lactated Ringers 1,000 ml 80 @ 20 mls/hr IV .Q24H [facility] Rx#:[id number] ceFAZolin 2 gm In Sodium 50 Chloride 0.9% 50 ml @ 100 mls/hr IVPB Q8HR [facility] Rx# :[id number] Other: # Voids 3 Results CBC & Chem 7: 03/16/23 06:33 03/16/23 06:33 Assessment and Plan Time with Patient: Less than 30
--- NOTE | 2023-03-16 13:43 | P.DS ---
Providers Date of admission: 03/15/23 Expected date of discharge: 03/16/23 Attending physician: Sanjay Keith DO Consults: 03/15/23 14:04 Consult Physician Routine Consulting Provider: Jef Lucio Reason/Comments: medical management Do you want consulting provider notified?: Yes Primary care physician: [place] Hospital Course: Hospital Course: The patient was evaluated preoperatively and found to have the diagnosis of lumbar stenosis. They underwent appropriate preoperative care and were willing to undergo the intended procedure. They underwent a successful minimally invasive TLIF L5-S1, were recovered appropriately and sent to the floor. While on the floor they worked with physical therapy, occupational therapy and nursing to enhance their recovery experience. Their pain was well controlled through their stay and they were started on appropriate medications, DVT ppx modalities, activity and dietary needs. Daily labs were monitored closely, and transfusions were only used when necessary. Medicine as well as other consulting services have made their input and have helped with our team approach and mu ltidisciplinary care. PT milestones have been met and passed and they have made the recommendation of home for this patient and treating providers agree with this care path. The patient will be discharged home with appropriate medications, instructions and follow-up information and in stable condition. Patient Condition at Discharge: Good Plan - Discharge Summary Discharge Rx Participant: Yes New Discharge Prescriptions: New Sennosides/Docusate Sodium [Senna Plus 8.6-50 mg Softgel] 1 each PO DAILY PRN #20 capsule PRN Reason: Constipation Sulfamethox-Tmp 800-160Mg [Bactrim DS 800-160 mg] 1 tab PO Q12HR 5 Days #10 tab Continue predniSONE 10 mg PO AC-SUPPER atenoloL 25 mg PO AC-BID Sennosides/Docusate Sodium [Senna Plus 8.6-50 mg Softgel] 1 each PO DAILY #20 capsule Cyclobenzaprine [Flexeril] 10 mg PO TID PRN 30 Days #90 tab PRN Reason: Muscle Spasm Gabapentin 300 mg PO TID 30 Days #90 cap Albuterol Inhaler [Ventolin Hfa Inhaler] 1 - 2 puff INHALATION Q6H PRN PRN Reason: Wheezing Alendronate Sodium [Fosamax] 70 mg PO ABBASI HYDROcodone/APAP 7.5-325MG [[place] 7.5-325] 1 tab PO Q6HR PRN #18 tab PRN Reason: Pain Discharge Medication List Alendronate Sodium [Fosamax] 70 mg PO ABBASI 12/28/22 [History] atenoloL 25 mg PO AC-BID 12/28/22 [History] predniSONE 10 mg PO AC-SUPPER 12/28/22 [History] Sennosides/Docusate Sodium [Senna Plus 8.6-50 mg Softgel] 1 each PO DAILY #20 capsule 12/31/22 [Rx] HYDROcodone/APAP 7.5-325MG [[place] 7.5-325] 1 tab PO Q6HR PRN #18 tab 01/12/23 [Rx] Cyclobenzaprine [Flexeril] 10 mg PO TID PRN 30 Days #90 tab 03/03/23 [Rx] Gabapentin 300 mg PO TID 30 Days #90 cap 03/03/23 [Rx] Albuterol Inhaler [Ventolin Hfa Inhaler] 1 - 2 puff INHALATION Q6H PRN 03/10/23 [History] Sennosides/Docusate Sodium [Senna Plus 8.6-50 mg Softgel] 1 each PO DAILY PRN #20 capsule 03/16/23 [Rx] Sulfamethox-Tmp 800-160Mg [Bactrim DS 800-160 mg] 1 tab PO Q12HR 5 Days #10 tab 03/16/23 [Rx] Follow up Appointment(s)/Referral(s): Joselo Scott DO [Primary Care Provider] - 1-2 Days Sanjay Keith DO [Doctor of Osteopathic Medicine] - 03/30/23 1:45 pm Ambulatory/Diagnostic Orders: Basic Metabolic Panel [LAB.AMB] Time Frame: 3 Days, Location: None Selected Activity/Diet/Wound Care/Special Instructions: Spine Discharge and Recovery Instructions Date of Surgery: 03/15/2023 Diagnosis: Lumbar stenosis Procedure: Minimally invasive TLIF L5-S1 Medications: See medication list All medication refills should be obtained through your primary care doctor or your clinic spine surgeon. Please discuss prescription refills at your follow up appointment. Do not call the hospital for medication refills. Dressing: Leave your dressing in place for a total of 5 days post operatively. Then you may remove your dressing and leave open to air. Keep the area clean and if not able to keep area clean, then cover with sterile gauze and tape. Showering: You may shower 3 days after your procedure allowing soap and water to run over incision. Do not scrub. Do not soak. Blot dry. Follow up: Please confirm a follow up appointment with your surgeon 3 weeks post operatively. Please make an appointment to follow up with your PCP in 1-2 weeks after surgery for evaluation 3 phase, 3-week plan POST OP WEEKS 1-3 1. Lifting/carrying/pushing/pulling limited to less than 5 pounds. 2. Do not sit for longer than 15 minutes at one time. Get up and walk around. Prolonged sitting is NOT advised. If you lay down, see if you can tolerate laying down on you front (belly side) 3. Walk for periods of 15 minutes = 1 mile but no longer; do it multiple times times each day. 4. Ice your low back after activity. POST OP WEEKS 3-6 1. Lifting limited to less than 20 pounds. 2. Do not sit for longer than 30 minutes at a time. Frequently change positions. Use a sit-to stand workstation or take frequent breaks from sitting if you have returned to work. 3. Walk for 30 minutes each day. If possible, do these three or more times a day POST OP WEEKS 6+ At your 6-week appointment we will give you a physical therapy referral to focus on a core stabilization and strengthening program. You should also work on leg & buttock strengthening, hamstring & quadriceps stretching, and continue a low impact aerobic activity program such as swimming, walking, or riding a stationary bicycle. During the initial 6 weeks after your surgery, you are at the highest risk of re-injuring your spine. You should generally avoid BLTs (bending, lifting and twisting combination motions) and follow the above guidelines to reduce the chance of reinjury. You can anticipate post op appointments in our office at approximately 3 weeks and 6 weeks after your surgery. INCISION CARE: If your incision is not draining you do NOT need to cover it with a dressing. Keep your incision clean, dry and intact. In most cases, we apply skin glue, vladimir or sutures to the incision at the time of surgery. This will be like a crust or have the appearance of a scab and will fall off in time on its own. The stitches or vladimir need to be removed at 3 weeks post op appointment. You may begin to shower 3 days after surgery (this allows the glue to montgomery well). However, please avoid scrubbing the incision site or peeling off any of the skin glue. This will ensure optimal healing of your incision. Also, during this time avoid soaking the incision area in water - this includes swimming pools, hot tubs or baths. No ointments, lotions or oils on the incision until your surgeon allows. Leave vladimir, abbasi tures or glue in place. Neurological dysfunction that comes on suddenly can also be a sign of a stroke. Below some common symptoms of a stroke are listed: B - balance difficulty such as sudden onset walking or leaning to one side - NEW E - eye problem such as sudden double vision or trouble seeing on one side - NEW F - Facial weakness or numbness on one side - NEW A - Arm or leg weakness or numbness on one side - NEW S - Slurred speech or difficulty with word finding - NEW T - Time is BRAIN! Call 911 as soon as you recognize these symptoms Diet: Consume a regular diet rich in vegetables and lean protein such as chicken or fish. You should consume in a ratio of approximately 20% fats|40% carbohydrates|40%protein. Vegetables, sweet potatoes, brown rice or quinoa are examples of good carbohydrates. Chips, white bread, cookies and sweets/sugar are examples of bad carbohydrates. Limit your bad carbs, go wild with good carbs. "Life's Simple 7" Guidelines as per [place] [employer] These will help you reclaim your life after surgery and dividing machine operator helper in your recovery, keeping in mind your restrictions. (1) Get Active. Physical activity can help people lose weight, control high blood pressure and cholesterol, feel emotionally better, and sleep better. (2) Control Cholesterol. Avoid a diet high in saturated fat, trans fat, & cholesterol. Limit whole milk & cream, ice cream, butter, egg yolks, processed meats (like sausage and hot dogs), and fatty meats. Choose healthy foods that are low in saturated fat, trans fat and cholesterol which include: Fruits and vegetables, fiber rich grain products (like whole grain pasta and brown rice), lean meat such as chicken, fish, nuts, seeds, and legumes. (3) Eat Better. Eat small portions. Shop at the grocery with a list and do not stray from it. Tips for a healthy diet include: Limit sodium intake to less than 1500mg daily, avoid prepackaged, processed, and fast foods, choose a diet rich in fruits, vegetables, and whole grain, high fiber foods, and limit saturated & cholesterol in your diet. (4) Manage Blood Pressure. If you have high blood pressure, you should have a cuff at home so that you can check your blood pressure regularly. Be sure you have a good cuff. An arm one is generally better than a wrist one. Bring the cuff to a doctor's appointment to validate that the measurements that your cuff are taking are accurate. Take your blood pressure twice daily when you are sitting down and relaxing. Record the numbers in a log and bring this log with you to your doctors' appointments. (5) Lose Weight if your BMI is above 25. A healthy BMI is between 19-25. To calculate Your BMI, you may use a Standard BMI Calculator on the NIH BMI website: <www.nhlbi.nih.gov/guidelines/obesity/BMI/bmicalc.htm>. Weigh oneself daily. If you are overweight, set a goal to lose weight. A pound a week loss if needed is a good target. (6) Reduce Blood Sugar. Limit foods and liquids with "added sugars." (Added sugars include sucrose, fructose, glucose, maltose, dextrose, high fructose corn syrup, corn syrup, concentrated fruit juice and honey). (7) Stop Smoking. If you smoke, quitting smoking is one of the best things that you can do for your health. Smoking increases your risk of heart attack, stroke, and peripheral vascular disease, which is a build-up of plaque in your arteries. Please discard all the cigarettes and lighters in your house. Have a plan for what you will do when you have the urge to smoke. Direct and second- hand smoke shortens your life as well as the lives of your family, friends and others around you. For your health and the health of those around you, please consider quitting! Proper Bending Body Mechanics: Maintain a wide stance with one foot slightly in front of the other. Keep your back straight. Bend utilizing the strength in your hips and knees. Do not bend at the waist. Maintain the lifted object at your waist-level close to your body. Avoid lifting weight that causes immediately pain or pain anywhere in the body afterwards. Smoking/Nicotine If there was ever one thing that you could do to increase your overall health, decrease your risk of cardiovascular problems by about 39% the second you make the choice, it is to STOP SMOKING. Your body's most instant gratification is th e second you stop smoking. We have all heard the studies, read the articles but it is true, smoking is extremely bad for your overall health, and moreover it is detrimental to your bone health. Nicotine, IN ANY FORM, kills bone cells, prevents your body from healing fractures, and significantly prolongs healing after surgery. In spine surgery specifically, it increases your risk of not healing your bones to create a fusion and increases your risk of having a revision surgery due to this up to 60%. I know it is hard. I know it feels impossible. But there are ways. Take con trol of your life. We are here to help you through it. And when you are ready, ask us and we can direct you to help if you desire. Use the START Plan to Quit Smoking (please visit the [employer]org website listed below for more information): S = Set a quit date. Choose a date within the next 2 weeks, so you have enough time to prepare without losing your motivation to quit. If you mainly smoke at work, quit on the weekend, so you have a few days to adjust to the change. T = Tell family, friends, and co-workers that you plan to quit. Let your friends and family in on your plan to quit smoking and tell them you need their support and encouragement to stop. Look for a quit cass who wants to stop smoking as well. You can help each other get through the rough times. A = Anticipate and plan for the challenges you'll face while quitting. Most people who begin smoking again do so within the first 3 months. You can help yourself make it through by preparing ahead for common challenges, such as nicotine withdrawal and cigarette cravings. R = Remove cigarettes and other tobacco products from your home, car, and work. Throw away all your cigarettes (no emergency pack!), lighters, ashtrays, and matches. Wash your clothes and freshen up anything that smells like smoke. Shampoo your car, clean your drapes and carpet, and steam your furniture. T = Talk to your doctor about getting help to quit. Your doctor can prescribe medication to help with withdrawal and suggest other alternatives. If you can't see a doctor, you can get many products over the counter at your local pharmacy or grocery store, including the nicotine patch, nicotine lozenges, and nicotine gum. Resources for Quitting Smoking: <https://www.[place].gov/documents/[facility]/Quit _Tobacco_Resources_for_patients_313480_7.pdf> Supplementation: Take recommended dosages of Vitamin D and Calcium to help fortify your bones and help them to heal. See your health maintenance packet for dosages and recommended levels. DVT/VTE prophylaxis: You will be given compression stockings from the hospital. Wear these daily for the first two weeks after surgery. You may take them off at night. You may be prescribed a medication to help thin your blood. Take this as directed. If you are not prescribed this medication, early and frequent ambulation has been shown to be the best prophylaxis to deep vein thrombosis and sequelae related to this event. Discharge Disposition: HOME SELF-CARE
[2023-03-16 13:48] VITALS: BP 161/66; PULSE 112; RESP 15; TEMP 98.9
== END 2023-03-16 14:58 | disposition home or self-care (01) ==
LOC: OR 08:52 → 4SSUR 14:09 → OR 03-16 14:58
PROVIDERS: ATTEND Orthopaedic Surgery
DX: M48.061 Spinal stenosis, lumbar region without neurogenic claudication (principal); M47.814 Spondylosis without myelopathy or radiculopathy, thoracic region; M43.17 Spondylolisthesis, lumbosacral region; J45.20 Mild intermittent asthma, uncomplicated
CPT/HCPCS: 97161; 86900; 86901; 80048; 85025; 86850; 72100; 72131; 63047; 22853; 20930; C1713; C1734; J2250; J3370; J0330; J0360; J0690 ×2; J2405; J3010; J2704; J1170 ×2; J2001; J2371; J1920